=== PATIENT | female | born 1950 | race Caucasian/White ===

== ENCOUNTER 2016-12-06 16:01 | Inpatient (IN) | payer OTHER, MEDICARE ==
[~2016-12-06] VITALS: Ht 170.2 cm; Wt 129.3 kg
--- NOTE | 2016-12-06 16:15 | ED GI/GU/ABDOMINAL COMPLAINT ---
History of Present Illness General Chief Complaint: General Adult Stated Complaint: NV Source: patient, old records, EMS Exam Limitations: no limitations Vital Signs & Intake/Output Vital Signs & Intake/Output Vital Signs Date Time Temp Pulse Resp B/P B/P Pulse O2 O2 Flow FiO2 Mean Ox Delivery Rate 12/06 1613 98.0 114 18 180/78 97 Room Air Allergies Coded Allergies: No Known Allergies (12/06/16) Triage Note: PT BIBA FROM HOME C/C N/V MULTIPLE TIMES SINCE THIS MORNING. STARTED AFTER BREAKFAST, ATE RAISIN TOAST. DENIES DIARRHEA, HAD 2 NORMAL BM THIS AM. DENIES URINARY S/S. Triage Nurses Notes Reviewed? yes ? N Is pt currently ? No HPI: Patient states that approximately one half hours after eating breakfast this morning she developed a sharp stabbing shooting pain in her upper quadrant. The pain shoots from the left upper quadrant to the right upper quadrant. Shortly after the pain the patient then vomits the pain goes away. This is his car multiple times throughout the day. The pain lasts just a few minutes until she throws up and then it goes away. When the pain is present the pain is 8 out of 10, and when it goes away goes away completely. There is no diarrhea. There are no fevers or chills. Patient denies any chest pain or chest tightness. There is no orthopnea. Patient also states that she has been having hiccups on and off for the past few weeks. Patient has seen a primary care physician about these hiccups. Past History Travel History Traveled to [place] past 21 day No Medical History Any Pertinent Medical History? see below for history Cardiovascular: hypertension Blood Disorders: anemia Surgical History Surgical History: none Psychosocial History What is your primary language Belarusian Tobacco Use: Quit >30 days ago Family History Hx Contributory? No Review of Systems Review of Systems Constitutional: Reports: no symptoms. EENTM: Reports: no symptoms. Respiratory: Reports: no symptoms. Cardiovascular: Reports: no symptoms. GI: Reports: see HPI, abdominal pain, nausea, vomiting. Genitourinary: Reports: no symptoms. Musculoskeletal: Reports: no symptoms. Skin: Reports: no symptoms. Neurological/Psychological: Reports: no symptoms. Hematologic/Endocrine: Reports: no symptoms. Immunologic/Allergic: Reports: no symptoms. All Other Systems: Reviewed and Negative Physical Exam Physical Exam General Appearance: well developed/nourished, alert, awake, mild distress Head: atraumatic, normal appearance Eyes: Bilateral: PERRL, EOMI. Ears, Nose, Throat, Mouth: hearing grossly normal, dental injury, dry mucosa Neck: normal inspection, supple Respiratory: normal breath sounds, chest non-tender, no respiratory distress, lungs clear Cardiovascular: regular rate/rhythm, normal peripheral pulses Gastrointestinal: normal bowel sounds, soft, non-tender, no organomegaly Back: normal inspection, normal range of motion Extremities: normal range of motion Neurologic/Psych: no motor/sensory deficits, awake, alert, oriented x 3, normal mood/affect Skin: intact, normal color, warm/dry Core Measures ACS in differential dx? 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 12/06 1614 Active URINALYSIS 12/06 161 Active TROPONIN LEVEL 12/06 161 Complete LIPASE 12/06 1614 Complete COMPREHENSIVE METABOLIC PANEL 12/06 161 Complete CBC WITHOUT DIFFERENTIAL 12/06 161 Complete AMYLASE 12/06 161 Complete EKG 12/06 1614 Active Current Medications Sig/Alexis Start time Last Medication Dose Stop Time Status Admin Sodium Chloride 1,000 ML BOLUS ONE 12/06 1830 AC (Normal Saline 0.9%) 12/06 1929 Laboratory Tests 12/06/16 1650: Anion Gap 15, Estimated GFR > 60, BUN/Creatinine Ratio 15.0, Glucose 127 H, Calcium 9.4, Total Bilirubin 0.6, AST 13 L, ALT 16, Alkaline Phosphatase 139 H , Troponin I < 0.01, Total Protein 6.9, Albumin 4.0, Globulin 2.9, Albumin/ Globulin Ratio 1.4, Amylase < 30 L, Lipase 44, CBC w Diff MAN DIFF ORDERED, RBC 4.85, MCV 64.0 L, MCH 18.8 L, RDW 20.3 H, Segmented Neutrophils 94 H, Band Neutrophils 1, Lymphocytes 3 L, Monocytes 2, Platelet Estimate , Hypochromic- Microcytic 1+, Anisocytosis 1+, Microcytic Cells 1+, PUBS MCHC 29.4 L Diagnostic Imaging: Viewed by Me: CT Scan. Discussed w/RAD: CT Scan. Radiology Impression: PATIENT: NADYA CREWS PRESENT AGE: 66 PATIENT ACCOUNT NO: [id number] : 51 LOCATION: [facility] ORDERING PHYSICIAN: ANJU HALE MD SERVICE DATE: 12/06/16 EXAM TYPE: CAT - CT ABD & PELVIS W IV CONTRAST EXAMINATION: CT ABDOMEN AND PELVIS WITH CONTRAST CLINICAL INFORMATION: Right upper quadrant abdominal pain COMPARISON: None TECHNIQUE: Multidetector volumetric imaging was performed of the abdomen and pelvis before and after the IV administration of 95 mL of Optiray 320 intravenous contrast. Sagittal and coronal reformatted images were obtained on the technologist's workstation. DLP: 1660.23 mGy-cm FINDINGS: LUNG BASES: The visualized lung bases are unremarkable. LIVER, GALLBLADDER, AND BILIARY TREE: The liver is normal in size, shape, and attenuation. No focal hepatic lesion or biliary ductal dilatation is present. The gallbladder is is a slightly over distended, up to 10.3 cm in longest diameter. However there is no evidence of radiopaque gallstones, gallbladder wall thickening, or obvious pericholecystic inflammatory changes. PANCREAS: Unremarkable. SPLEEN: Unremarkable. ADRENAL GLANDS: Unremarkable. KIDNEYS AND URETERS: The kidneys are normal in size, shape , and attenuation. No hydronephrosis, hydroureter, or calculi seen. No perinephric stranding. BLADDER: The urinary bladder is partially full and unremarkable. GASTROINTESTINAL TRACT: The stomach, duodenum and proximal small bowel loops are unremarkable. The more distal small bowel loops are dilated, with maximal transverse diameter of 4.5 cm. There is no small bowel wall thickening or pneumatosis. The colon is decompressed. There seems to be a 3 x 4 cm soft tissue density in the region of the ileocecal valve, better seen on coronal image 61 and axial image 51 from series 2. This is concerning for neoplastic process. ABDOMINAL WALL: No significant hernia is appreciated. LYMPH NODES: There is a 1.7 cm lymph node in the right side of the mesentery, axial image 45 from series 2 and coronal image 50. Multiple smaller mesenteric lymph nodes are seen in the right lower quadrant of the abdomen. There is no free fluid or free air in the abdomen or pelvis. VASCULAR: Unremarkable. PELVIC VISCERA: Enlarged fibromatous uterus with calcifications of a uterine fibroid noted. No adnexal masses seen. OSSEOUS STRUCTURES: Multilevel degenerative disc disease of the lumbar spine with vacuum disc phenomenon and mild narrowing of the intervertebral disc spaces noted. No aggressive bony lesions. IMPRESSION: Findings of small bowel obstruction with suggestion of the transition zone in the region of the ileocecal valve, where there is a 3 x 4 cm soft tissue density. There is an enlarged right mesenteric lymph node. The gallbladder is a slightly over distended, up to 10.3 cm in longest diameter, however there are no CT evidence of acute cholecystitis. DICTATED BY: HELDER MONREAL MD DATE/TIME DICTATED:12/06/161746 INSULATION POWER UNIT TENDER:DAYSI DATE/TIME TRANSCRIBED:1746 CONFIDENTIAL, DO NOT COPY WITHOUT APPROPRIATE AUTHORIZATION. < Electronically signed in Other Vendor System> SIGNED BY: HELDER MONREAL MD 12/06/16 1801 Initial ED EKG: S TACH AT 100, NO ISCHEMIC CHANGES. Rhythm Strip: normal sinus rhythm Comments: Patient updated on laboratory results and CAT scan results. Consultation to surgery has been placed. Departure Departure Disposition: STILL A PATIENT Condition: Guarded Clinical Impression Primary Impression: Small bowel obstruction Secondary Impressions: Intestinal mass Referrals: ROQUE KNOTT,PRIYA Leon (PCP/Family) Departure Forms: Customer Survey General Discharge Information Admission Note Spoke With: OSMANI KNOTT,CHERI N. Documentation of Exam: Documentation of any treatments & extenuating circumstances including Concerns Regarding Discharge (functional status, medication knowledge or non-compliance, living conditions, etc.) that warrant an admission rather than observation: [NPO , IV FLUIDS, SURGICAL EVAL AND TREATMENT.]
--- NOTE | 2016-12-06 16:36 | NUR ---
1 L NS INFUSING AT BOLUS RATE. TETANUS INJ GIVEN TO LEFT DELT ORDERD
[2016-12-06 16:46] LABS: MEAN CORPUSCULAR HGB 18.8 PG (27.0-31.0); MEAN CORPUSCULAR HGB CONC 29.4 G/DL (33.0-37.0); RBC DISTRIBUTION WIDTH 20.3 % (11.5-14.5); RED BLOOD CELL CT 4.85 /CUMM (4.20-5.40); WHITE BLOOD CELL COUNT 13.6 /CUMM (4.8-10.8)
--- NOTE | 2016-12-06 17:18 | NUR ---
DR. HALE AT BESIDE TO DISCUSS RESULTS AND POC
--- NOTE | 2016-12-06 17:27 | NUR ---
PT TO CT SCAN
--- NOTE | 2016-12-06 17:40 | NUR ---
PT RETURNED FROM CT SCAN W/O INCIDENT
--- NOTE | 2016-12-06 18:01 | CT SCAN REPORT ---
EXAMINATION: CT ABDOMEN AND PELVIS WITH CONTRAST CLINICAL INFORMATION: Right upper quadrant abdominal pain COMPARISON: None TECHNIQUE: Multidetector volumetric imaging was performed of the abdomen and pelvis before and after the IV administration of 95 mL of Optiray 320 intravenous contrast. Sagittal and coronal reformatted images were obtained on the technologist's workstation. DLP: 1660.23 mGy-cm FINDINGS: LUNG BASES: The visualized lung bases are unremarkable. LIVER, GALLBLADDER, AND BILIARY TREE: The liver is normal in size, shape, and attenuation. No focal hepatic lesion or biliary ductal dilatation is present. The gallbladder is is a slightly over distended, up to 10.3 cm in longest diameter. However there is no evidence of radiopaque gallstones, gallbladder wall thickening, or obvious pericholecystic inflammatory changes. PANCREAS: Unremarkable. SPLEEN: Unremarkable. ADRENAL GLANDS: Unremarkable. KIDNEYS AND URETERS: The kidneys are normal in size, shape, and attenuation. No hydronephrosis, hydroureter, or calculi seen. No perinephric stranding. BLADDER: The urinary bladder is partially full and unremarkable. GASTROINTESTINAL TRACT: The stomach, duodenum and proximal small bowel loops are unremarkable. The more distal small bowel loops are dilated, with maximal transverse diameter of 4.5 cm. There is no small bowel wall thickening or pneumatosis. The colon is decompressed. There seems to be a 3 x 4 cm soft tissue density in the region of the ileocecal valve, better seen on coronal image 61 and axial image 51 from series 2. This is concerning for neoplastic process. ABDOMINAL WALL: No significant hernia is appreciated. LYMPH NODES: There is a 1.7 cm lymph node in the right side of the mesentery, axial image 45 from series 2 and coronal image 50. Multiple smaller mesenteric lymph nodes are seen in the right lower quadrant of the abdomen. There is no free fluid or free air in the abdomen or pelvis. VASCULAR: Unremarkable. PELVIC VISCERA: Enlarged fibromatous uterus with calcifications of a uterine fibroid noted. No adnexal masses seen. OSSEOUS STRUCTURES: Multilevel degenerative disc disease of the lumbar spine with vacuum disc phenomenon and mild narrowing of the intervertebral disc spaces noted. No aggressive bony lesions. IMPRESSION: Findings of small bowel obstruction with suggestion of the transition zone in the region of the ileocecal valve, where there is a 3 x 4 cm soft tissue density. There is an enlarged right mesenteric lymph node. The gallbladder is a slightly over distended, up to 10.3 cm in longest diameter, however there are no CT evidence of acute cholecystitis.
--- NOTE | 2016-12-06 19:08 | NUR ---
SURGERY IN TO SEE PATIENT. PT TO BE NPO AT THIS TIME. PENDING ADMISSION
[2016-12-06] MEDS ORDERED: LISINOPRIL10 M1 PO (19:32)
--- NOTE | 2016-12-06 19:35 | NUR ---
PATIENT REPORTED TO THIS RN, "THE SURGERY TEAM SAID IF I DON'T LIKE THE TUBE I DON'T NEED IT". ATTEMPTED TO PLACE NG TUBE TO RIGHT NARE, PATIENT BEGAN TO GAG AND REQUESTED TO HAVE TUBE REMOVED. NG TUBE DISCONTINUED AT THIS TIME. PT VOMITING BILIOUS EMESIS.
--- NOTE | 2016-12-06 19:50 | PN- General Surgery ---
Subjective Subjective: Pt seen and evaluated in the ED Dr Camp to complete the H and P In brief: Abdominal pain and nausea all day. BM x 2 today - normal. Pt has had a one year history of abdominal "gurgling" - no pain, no nausea, just a strange bloating feeling. Was seen by her PCP Dr Stevens about a year ago and dx with anemia. Placed on iron tabs which upset her stomach so she stopped taking them about 3 months later. No known GI workup in the past. Today abdominal pain and nausea brought her to present to the ED. CT reveals a mass at the ileocecal junction Surgery was contacted Objective Vital Signs and I&Os Vital Signs Date Time Temp Pulse Resp B/P B/P Pulse O2 O2 Flow FiO2 Mean Ox Delivery Rate 12/07 1927 98.5 94 20 170/70 97 Room Air 12/06 161 98.0 114 18 180/78 97 Room Air Physical Exam: VSS, afebrile General: alert and oriented times three chest: clear anteriorly bilaterally, RRR Abd: soft, tender to moderate palpation in lower abdomen, non tender upper, good bs Ext: warm, no edema Current Medications: Current Medications Sig/Alexis Start time Last Medication Dose Route Stop Time Status Admin Acetaminophen 650 MG Q6PRN PRN 12/06 1944 UNVr PO Dextrose/Sodium 1,000 ML .Q8H 12/06 1944 UNVr Chloride IV Heparin Sodium 5,000 UNIT Q8 12/06 2200 UNVr (Porcine) SC Lidocaine 0 .STK-MED ONE 12/06 192 DC PO Lisinopril 10 MG DAILY 12/07 1000 UNVr PO Metoclopramide HCl 10 MG ONCE ONE 12/06 1700 DC 12/06 IV 12/06 1701 1654 Metoclopramide HCl 0 .STK-MED ONE 12/06 1657 DC .ROUTE Morphine Sulfate 1 MG Q3P PRN 12/06 1944 UNVr IV Morphine Sulfate 2 MG Q3P PRN 12/06 1944 UNVr IV Ondansetron HCl 4 MG Q8P PRN 12/06 1944 UNVr IV Sodium Chloride 1,000 ML BOLUS ONE 12/06 1830 DC 12/06 IV 12/06 1929 1848 Sodium Chloride 1,000 ML BOLUS ONE 12/06 1615 DC 12/06 IV 12/06 1714 1636 Tetanus/Diphtheria 0 .STK-MED ONE 12/06 1632 DC Toxoids Adsorbed IM Tetanus/Diphtheria 0.5 ML ONCE ONE 12/06 161 DC 12/06 Toxoids Adsorbed IM 12/06 161 1635 Zolpidem Tartrate 5 MG AT BEDTIME NEED.. 12/06 1944 UNVr PO Results Last 48 Hours of Labs: Laboratory Tests 12/06 1649 Chemistry Sodium (137 - 145 mmol/L) 139 Potassium (3.5 - 5.1 mmol/L) 4.4 Chloride (98 - 107 mmol/L) 103 Carbon Dioxide (22 - 30 mmol/L) 21 L Anion Gap (5 - 16) 15 BUN (7 - 17 mg/dL) 9 Creatinine (0.5 - 1.0 mg/dL) 0.6 Estimated GFR (>60 ml/min) > 60 BUN/Creatinine Ratio (7 - 25 %) 15.0 Glucose (65 - 99 mg/dL) 127 H Calcium (8.4 - 10.2 mg/dL) 9.4 Total Bilirubin (0.2 - 1.3 mg/dL) 0.6 AST (14 - 36 U/L) 13 L ALT (9 - 52 U/L) 16 Alkaline Phosphatase (<127 U/L) 139 H Troponin I (< 0.11 ng/ml) < 0.01 Total Protein (6.3 - 8.2 g/dL) 6.9 Albumin (3.5 - 5.0 g/dL) 4.0 Globulin (1.9 - 4.2 gm/dL) 2.9 Albumin/Globulin Ratio (1.1 - 2.2 %) 1.4 Amylase (30 - 110 U/L) < 30 L Lipase (23 - 300 U/L) 44 Hematology CBC w Diff MAN DIFF ORDERED WBC (4.8 - 10.8 /CUMM) 13.6 H RBC (4.20 - 5.40 /CUMM) 4.85 Hgb (12.0 - 16.0 G/DL) 9.1 L Hct (37 - 47 %) 31.0 L MCV (81.0 - 99.0 FL) 64.0 L MCH (27.0 - 31.0 PG) 18.8 L RDW (11.5 - 14.5 %) 20.3 H Plt Count (130 - 400 /CUMM) Segmented Neutrophils (42.2 - 75.2 %) 94 H Band Neutrophils (0.0 - 5.0 %) 1 Lymphocytes (20.5 - 51.1 %) 3 L Monocytes (1.7 - 9.3 %) 2 Platelet Estimate (ADEQUATE) Hypochromic-Microcytic 1+ Anisocytosis 1+ Microcytic Cells 1+ PUBS MCHC (33.0 - 37.0 G/DL) 29.4 L Assessment/Plan Assessment/Plan 66 yo female with ileocecal mass/anemia d/w Dr Camp plan to admit to surgery npo/ngt/ivf GI to see in the am for further workup fu labs in am pain mgmt Core Measures/Miscellaneous Venous Thromboembolism VTE Risk Factors: Age > 40 VTE Contraindications: No Contraindications VTE Diagnosis: No Beta Yumiko Is Beta Yumiko a Home Med? No Antibiotics Is Patient on Antibiotics? No
--- NOTE | 2016-12-06 19:52 | Admission Core Measures ---
Admission Lab Results I reviewed the following labs: Laboratory Tests 12/06 1650 Chemistry Sodium (137 - 145 mmol/L) 139 Potassium (3.5 - 5.1 mmol/L) 4.4 Chloride (98 - 107 mmol/L) 103 Carbon Dioxide (22 - 30 mmol/L) 21 L Anion Gap (5 - 16) 15 BUN (7 - 17 mg/dL) 9 Creatinine (0.5 - 1.0 mg/dL) 0.6 Estimated GFR (>60 ml/min) > 60 BUN/Creatinine Ratio (7 - 25 %) 15.0 Glucose (65 - 99 mg/dL) 127 H Calcium (8.4 - 10.2 mg/dL) 9.4 Total Bilirubin (0.2 - 1.3 mg/dL) 0.6 AST (14 - 36 U/L) 13 L ALT (9 - 52 U/L) 16 Alkaline Phosphatase (<127 U/L) 139 H Troponin I (< 0.11 ng/ml) < 0.01 Total Protein (6.3 - 8.2 g/dL) 6.9 Albumin (3.5 - 5.0 g/dL) 4.0 Globulin (1.9 - 4.2 gm/dL) 2.9 Albumin/Globulin Ratio (1.1 - 2.2 %) 1.4 Amylase (30 - 110 U/L) < 30 L Lipase (23 - 300 U/L) 44 Hematology CBC w Diff MAN DIFF ORDERED WBC (4.8 - 10.8 /CUMM) 13.6 H RBC (4.20 - 5.40 /CUMM) 4.85 Hgb (12.0 - 16.0 G/DL) 9.1 L Hct (37 - 47 %) 31.0 L MCV (81.0 - 99.0 FL) 64.0 L MCH (27.0 - 31.0 PG) 18.8 L RDW (11.5 - 14.5 %) 20.3 H Plt Count (130 - 400 /CUMM) Segmented Neutrophils (42.2 - 75.2 %) 94 H Band Neutrophils (0.0 - 5.0 %) 1 Lymphocytes (20.5 - 51.1 %) 3 L Monocytes (1.7 - 9.3 %) 2 Platelet Estimate (ADEQUATE) Hypochromic-Microcytic 1+ Anisocytosis 1+ Microcytic Cells 1+ PUBS MCHC (33.0 - 37.0 G/DL) 29.4 L Admission Meds I reviewed the following Meds: Current Medications Sig/Alexis Start time Last Medication Dose Stop Time Status Admin Acetaminophen 650 MG Q6PRN PRN 12/06 1944 UNVr (Tylenol) Dextrose/Sodium 1,000 ML .Q8H 12/06 1944 UNVr Chloride (D5W-1/2 Normal Saline 1000ML) Heparin Sodium 5,000 UNIT Q8 12/06 2199 UNVr (Porcine) Lisinopril 10 MG DAILY 12/07 1000 UNVr (Prinivil) Morphine Sulfate 1 MG Q3P PRN 12/06 1944 UNVr (Morphine) Morphine Sulfate 2 MG Q3P PRN 12/06 1944 UNVr (Morphine) Ondansetron HCl 4 MG Q8P PRN 12/06 1944 UNVr (Zofran) Zolpidem Tartrate 5 MG AT BEDTIME NEED.. 12/06 1944 UNVr (Ambien) Acute Coronary Syndrome Inclusion Criteria ACS Diagnosis No Inpatient Core Measures LDL Reminder: If No, please order W/I first 24hr of stay Congestive Heart Failure Inclusion Criteria CHF Diagnosis No Cerebrovascular accident Inclusion Criteria CVA/TIA Diagnosis No Inpatient Core Measures Bedside Swallow Eval Reminder: If BSE failed, place ST order Antithrombotic Reminder: Order Antithrombotic Medication by end of day 2 Antithrombotic Reminder: Document Reason Antithrombotic Not ordered by end of day 2 AFIB/Flutter Reminder: If Present, add to problem list AFIB/Flutter Reminder: Order Anticoag Medication for pts with AFIB/Flutter Atherosclerosis Reminder: If Present, add to problem list LDL Reminder: If No, please order W/I first 24hr of stay PT Order Reminder: If No, please order Venous thromboembolism Inpatient Core Measures VTE Risk Factors: Age > 40 [facility] prophylaxis d/t No contraindications No VTE Pharm Prophylaxis d/t No contraindications Inclusion Criteria - Per Current guidelines, there needs to be overlap - treatment for the first 5 days of Warfarin therapy. - Parenteral Anticoagulation (IV or SC) needs to be - given along with Warfarin therapy. VTE Diagnosis No VTE Type NONE VTE Confirmed by (Test) NONE Problem List As ranked by this Provider includes Assessment & Plan 1. Intestinal mass HOME MEDS Home Med List Lisinopril 10 MG TABLET 1 TAB PO DAILY HTN (Reported)
--- NOTE | 2016-12-06 20:05 | NUR ---
PT ADMITTED TO ROOM 237-01
--- NOTE | 2016-12-06 20:37 | NUR ---
REPORT GIVEN TO HARLAN DEWEY
[2016-12-06 21:00] VITALS: BP 154/84
[2016-12-07 06:24] VITALS: BP 150/72
--- NOTE | 2016-12-07 07:22 | PN- General Surgery ---
Subjective Subjective: The patient was seen this morning. She reports some minimal abdominal discomfort this morning which is adequately managed with Tylenol. She reports overall her pain has improved since admission and she denies any current nausea. She has no complaints at the current time and has not passed flatus or had a bowel movement since yesterday. Objective Vital Signs and I&Os Vital Signs Date Time Temp Pulse Resp B/P B/P Pulse O2 O2 Flow FiO2 Mean Ox Delivery Rate 12/08 623 98.4 88 18 150/72 99 Room Air 12/06 2227 86 154/84 / 2100 98.5 86 20 154/84 100 Room Air 12/06 2045 Room Air 12/06 1928 98.5 94 20 170/70 97 Room Air 12/06 1613 98.0 114 18 180/78 97 Room Air Intake & Output 12/07 0800 07/ 0000 12/06 1600 / 0800 12/06 0000 12/05 1600 Intake Total 1080 1250 Output Total 300 Balance 780 1250 Intake, IV 1000 1150 Intake, Oral 80 100 Output, Urine 300 Patient 285 lb Weight Weight Reported by Patient Measurement Method Physical Exam: Gen.: Alert and in no obvious distress Skin: Warm and dry Abdomen: Soft, obese, nontender, nondistended, bowel sounds positive. Extremities: Bilateral lower extremities are warm without calf tenderness. Assessment/Plan Assessment/Plan Assessment: 66-year-old female admitted to be admitted for abdominal pain with a CAT scan finding of a probable ileal cecal mass. The patient's abdominal pain and nausea has improved overnight. Plan: We will continue to hold off on NG tube as the patient is refusing is currently not nauseous Keep nothing by mouth with IV hydration PRN pain medication Out of bed and ambulate GI and DVT prophylaxis Incentive spirometry Follow-up gastroenterology consultation Follow-up morning laboratory studies Core Measures/Miscellaneous Venous Thromboembolism VTE Risk Factors: Age > 40 VTE Contraindications: No Contraindications VTE Diagnosis: No VTE Type: NONE VTE Confirmed by (Test): NONE Beta Yumiko Is Beta Yumiko a Home Med? No Antibiotics Is Patient on Antibiotics? No
--- NOTE | 2016-12-07 08:17 | Cons- Gastroenterology ---
General Information and HPI Consulting Request Date of Consult: 12/07/16 Requested By: OSMANI KNOTT,CHERI Phillips Reason for Consult: I was just notified within the past hour of a request by the surgical service for GI consultation to evaluate mass at ileocecal valve noted on CT, in the setting of SBO. Source of Information: patient, family (pt's son, Kaveh) Exam Limitations: poor insight & anxiety History of Present Illness: 66-year-old female, obese, HTN, non-DM, without previous abdominal surgery, who presented to the [place] [facility] 12/06/2016 at 4:01 p.m., BIBA from home, complaining of multiple episodes of nausea and vomiting that morning, starting after breakfast, after she ate raisin toast. She also had upper mid abdominal pain then, radiationg across the upper abdomen. She denied any diarrhea. She had 2 normal bowel movements that morning. The vomitus showed partially digested food. There was no blood or bile from above. She denied any GERD, odynophagia, dysphagia, early satiety, fevers, chills, jaundice, weight loss, change in appetite, constipation, obstipation, change in stool caliber, melena, or rectal bleeding. There is no family history of colon cancer, GI disease, or inherited liver disease. She was not on any aspirin or NSAIDs. She denied any symptoms of UTI or URI. She noted some mild hiccups on the day of admission. She denied any gross hematuria, hemoptysis, or vaginal spotting. She does not see UNDERGROUND ELECTRICIAN. CT on admission also showed a uterine fibroid. Upon presentation, BP 180/78, PT 114, R 18, T 98, O2 sat RA 97%. She was given IV NS, a tetanus shot (as she had scraped her leg on a screw 1 week prior), Reglan, viscous lidocaine, Tylenol, Zofran, subcutaneous heparin, Ambien & MS in the ER. 12/06/16: CT AP with IV contrast per ER- SBO with mass at ICV. NG tube was advised by surgery, but the patient refused this. She is NPO, getting IVF. She was admitted to the surgical service on 12/06/2016. *The patient has chronic iron deficient microcytic anemia, per PMD, Dr. Navarro , dating back to 07/28/2015: WBC 5.7, H/H 6.6/23.6, MCV 54.8, RDW 23, PLT 321. 07/31/2015: Fe 14, TIBC 453, Fe sat 3.1%, ferritin 4.9, folate 17.3, RBC folate 1175 (no B12 sent then). *She has never had a baseline colonoscopy or EGD. She refused a colonoscopy then, and prefers not to have one. She and her son, Kaveh, are aware of a mass found at the ICV on CT in the ER (see below). She has poor insight into her condition. She was temporarily put on iron in 07/2015 by her PMD, which she has since stopped. She has never been transfused. *She was made aware that most likely the mass at her ICV is most likely the culprit for her iron deficiency found in 07/2015. She claimed she had OB-negative stool at the time of her Fe deficiency diagnosis & refused a digital rectal exam at the time of GI consultation. 04/04/2016: stool Ag H. pylori- negative, per PMD. Admission labs 12/06/2016: WBC 13.6 (94S/1B/3L/2M), H/H 9.1/31, MCV 64, RDW 20.3 , PLT clumped, glucose 127, BUN/Cr 9/0.6, GFR > 60, Na 139, K 4.4, HCO3 21, AG 15, amylase < 30, lipase 44, Ca 9.4, albumin 4.0, globulin 2.9, TBil 0.6, alk phos 139, AST 13, ALT 16, troponin < 0.01; U/A- clear yellow, 1.010, 7.5, 1-3 WBC, 15+ ketone, tr prot, micro- otherwise neg, neg nitrite, neg esterase. 12/07/2016: WBC 8.8 (76S/8L/16M), H/H 8.3/27.8 (post IVF), MCV 63.5, RDW 20.5, PLT 311, normal electrolytes with HCO3 26, AG 7, BUN/Cr 8/0.6, GFR > 60. 12/07/2016: *CEA- pending. 12/06/2016: EKG- ST @ 100, normal axis, normal intervals, PRWP without ischemic abnormalities. 12/06/2016: CT ABD & PELVIS W IV CONTRAST- Findings of small bowel obstruction with suggestion of the transition zone in the region of the ileocecal valve, where there is a 3 x 4 cm soft tissue density. There is an enlarged 1.7 cm right mesenteric lymph node. No ascites. No free air. The gallbladder is a slightly over distended, up to 10.3 cm in longest diameter, however there are no CT evidence of acute cholecystitis. No gallstones. Normal liver, spleen, & pancreas. Uterine fibroid. L-spine DJD. 12/07/2016: XR ABDOMEN MULTIPLE VIEWS- Persistent distal small bowel obstruction. Obese body habitus. Small bowel remains obstructed and is dilated up to approximately 4 cm diameter, similar in appearance compared to 12/06/2016. No evidence of pneumatosis intestinalis, pneumoperitoneum or other acute finding. There is a paucity of gas in the colon and rectum. Allergies/Medications Allergies: Coded Allergies: No Known Allergies (12/06/16) Home Med List: Lisinopril 10 MG TABLET 1 TAB PO DAILY HTN (Reported) Current Medications: Current Medications Sig/Alexis Start time Last Medication Dose Route Stop Time Status Admin Acetaminophen 650 MG Q6PRN PRN 12/06 1944 AC 12/07 PO 1235 Dextrose/Sodium 1,000 ML .Q8H 12/06 1944 AC 12/07 Chloride IV 0551 Heparin Sodium 5,000 UNIT Q8 12/06 2200 AC 12/07 (Porcine) SC 1319 Lidocaine 0 .STK-MED ONE 12/06 1921 DC PO Lisinopril 10 MG 2000 12/08 1999 AC PO Lisinopril 10 MG DAILY 12/07 1000 DC PO Lisinopril 10 MG ONE TIME ONE 12/06 2144 DC 12/06 PO 12/06 214 2227 Morphine Sulfate 1 MG Q3P PRN 12/06 1944 AC IV Morphine Sulfate 2 MG Q3P PRN 12/06 1944 AC IV Ondansetron HCl 4 MG Q8P PRN 12/06 1944 AC IV Sodium Chloride 1,000 ML BOLUS ONE 12/06 1830 DC 12/06 IV 12/06 1928 1848 Zolpidem Tartrate 5 MG AT BEDTIME NEED.. 12/06 1944 AC PO Past History Travel History Traveled to [place] past 21 day No Medical History Blood Transfusion Hx: No Neurological: NONE EENT: NONE Cardiovascular: hypertension Respiratory: NONE Gastrointestinal: NONE Hepatic: NONE Renal: NONE Musculoskeletal: osteoarthritis Psychiatric: anxiety (mild) Endocrine: obesity Blood Disorders: anemia (fe deficiency) Cancer(s): NONE UNDERGROUND ELECTRICIAN/Reproductive: NONE Surgical History Surgical History: none Family History Relations & Conditions If Any: MOTHER, , Age 88; Cause: CVA (cerebral vascular accident). FATHER, , Age 94; Cause: Old age. Psychosocial History Where Do You Live? Home Who Do You Live With? self Services at Home: None Primary Language: Taiwanese Smoking Status: Former Smoker (1 pk yr cigarettes, D/C age 19) ETOH Use: denies use Illicit Drug Use: denies illicit drug use Living Will? no Power of Cabinet Assembler/HCP? no Other Social History: Single. Lives alone. Remote 1 pk yr cigarette smoker, D/C age 19. No EtOH. 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 1 son, Kaveh- 42, [employer] (in room during GI consult, as per patient). Uses cane. Functional Ability ADLs Independent: dressing, eating, toileting, bathing. Ambulation: cane IADLs Independent: shopping, housework, finances, food prep, telephone, transportation , medication admin. Employment History Employment: Retired Profession/Employer: Retired from [employer] Review of Systems Review of Systems: Full 14 point ROS otherwise noncontributory & as above. Review of Systems Constitutional: Denies: chills, diaphoresis, fever, malaise, weakness, unexplained weight loss. EENTM: Denies: blurred vision, double vision, visual changes, eye pain, eye drainage, eye tearing, icterus, ear discharge, ear pain, ear redness, hearing changes, nasal congestion, epistaxis, nasal pain, throat pain, throat swelling, mouth pain, tooth pain. Cardiovascular: Reports: peripheral edema (chronic). Denies: chest pain, edema, orthopena, palpitations, syncope. Respiratory: Denies: cough, hemoptysis, orthopnea, short of breath, sputum production, stridor, wheezing. GI: Reports: abdominal pain, nausea, vomiting. Denies: bloating, constipation, diarrhea, distention, bowel incontinence, melena, bloody stool, changes in stool , steatorrhea. Genitourinary: Denies: discharge, dysuria, frequency, hematuria, hesitation, nocturia, pain, urgency. Musculoskeletal: Reports: joint pain (DJD). Denies: back pain, gout, joint swelling, muscle pain , muscle stiffness, neck pain. Skin: Denies: cysts, change in skin color, change in hair/nails, dryness, erythema, jaundice, lesions, lymphangitis, lumps, moles, rash. Neurological/Psychological: Reports: anxiety (mild). Denies: ataxia, cognitive dysfunction, confusion, depressed, dementia, emotional problems, headache, numbness, paresthesia, pre- existing deficit, petit mal seizures, tingling, tremors, tonic-clonic seizures, unable to move lower ext, unable to move upper ext, weakness. Hematologic/Endocrine: Denies: bruising, bleeding, polyuria, polydipsia. Immunologic/Allergic: Denies: splenectomy, HIV/AIDS, lymphadenopathy. All Other Systems: Reviewed and Negative Exam & Diagnostic Data Vital Signs and I&O Vital Signs Date Time Temp Pulse Resp B/P B/P Pulse O2 O2 Flow FiO2 Mean Ox Delivery Rate 12/07 0624 98.4 88 18 150/72 99 Room Air 12/06 2227 86 154/84 12/06 2100 98.5 86 20 154/84 100 Room Air 12/06 2045 Room Air 12/06 1928 98.5 94 20 170/70 97 Room Air 12/06 1613 98.0 114 18 180/78 97 Room Air Intake & Output 12/07 1600 12/07 0400 12/06 1600 12/06 0400 12/05 1600 12/05 0400 Intake Total 1080 1250 Output Total 300 Balance 780 1250 Intake, IV 1000 1150 Intake, Oral 80 100 Output, Urine 300 Patient 285 lb Weight Weight Reported by Patient Measurement Method Physical Exam: Well-developed, morbidly obese female, in no apparent distress. Nontoxic appearing. Sclera anicteric. Conjunctiva pink. Oropharynx clear. No oral thrush. No aphthous ulcers. Poor dentition. There is no adenopathy, thyromegaly, or JVD. No peripheral stigmata of inflammatory bowel disease or chronic liver disease on exam. No spiders on the anterior chest wall. Breast & pelvic exams: API. No CVA tenderness. Lungs: clear to A&P, with slight decreased BS at the bases B/L. Heart exam: regular rate rhythm, S1 and S2, without any murmur. Abdominal exam: normal bowel sounds, soft belly, morbidy obese, nontender, without guarding or rebound. No mass or organomegaly, within the limits of the body habitus. Negative Gonzalez sign. No fluid shift. No pulsatile mass. No epigastric bruit. Digital rectal exam: *refused by patient. Extremities: without cyanosis or clubbing. 1+ pitting edema of the LE B/L. No palpable cords. LE with B/L ALPS. Mild DJD. Distal pulses 1+ bilaterally. DTRs 2+ bilaterally. Alert and oriented x 3. No tremor. No asterixis. Motor 5/5 B/L. Results Pertinent Lab Results: Laboratory Tests 12/07 12/07 12/06 0746 0746 1924 Chemistry Sodium Pending Potassium Pending Chloride Pending Carbon Dioxide Pending Anion Gap Pending BUN Pending Creatinine Pending BUN/Creatinine Ratio Pending Carcinoembryonic Ag Pending Hematology CBC w Diff Pending WBC Pending RBC Pending Hgb Pending Hct Pending MCV Pending MCH Pending RDW Pending Plt Count Pending MPV Pending PUBS MCHC Pending Urines Urinalysis LIGHT H Urine Color (YEL,AMB,STR) YEL Urine Clarity (CLEAR) CLEAR Urine pH (5.0 - 8.0) 7.5 Ur Specific [place] (1.001 - 1.035) 1.010 Urine Protein (NEG,<30 MG/DL) TRACE H Urine Ketones (NEG) 15 H Urine Nitrite (NEG) NEG Urine Bilirubin (NEG) NEG Urine Urobilinogen (0.1 - 1.0 EU/dl) 1.0 Ur Leukocyte Esterase (NEG) NEG Ur Microscopic SEDIMENT EXAMINED Urine WBC (0 - 2 /HPF) 1-3 H Ur Epithelial Cells (NONE,FEW) FEW Urine Hemoglobin (NEG) NEG Urine Glucose (N MG/DL) NEG 12/06 1650 Chemistry Sodium (137 - 145 mmol/L) 139 Potassium (3.5 - 5.1 mmol/L) 4.4 Chloride (98 - 107 mmol/L) 103 Carbon Dioxide (22 - 30 mmol/L) 21 L Anion Gap (5 - 16) 15 BUN (7 - 17 mg/dL) 9 Creatinine (0.5 - 1.0 mg/dL) 0.6 Estimated GFR (>60 ml/min) > 60 BUN/Creatinine Ratio (7 - 25 %) 15.0 Glucose (65 - 99 mg/dL) 127 H Calcium (8.4 - 10.2 mg/dL) 9.4 Total Bilirubin (0.2 - 1.3 mg/dL) 0.6 AST (14 - 36 U/L) 13 L ALT (9 - 52 U/L) 16 Alkaline Phosphatase (<127 U/L) 139 H Troponin I (< 0.11 ng/ml) < 0.01 Total Protein (6.3 - 8.2 g/dL) 6.9 Albumin (3.5 - 5.0 g/dL) 4.0 Globulin (1.9 - 4.2 gm/dL) 2.9 Albumin/Globulin Ratio (1.1 - 2.2 %) 1.4 Amylase (30 - 110 U/L) < 30 L Lipase (23 - 300 U/L) 44 Hematology CBC w Diff MAN DIFF ORDERED WBC (4.8 - 10.8 /CUMM) 13.6 H RBC (4.20 - 5.40 /CUMM) 4.85 Hgb (12.0 - 16.0 G/DL) 9.1 L Hct (37 - 47 %) 31.0 L MCV (81.0 - 99.0 FL) 64.0 L MCH (27.0 - 31.0 PG) 18.8 L RDW (11.5 - 14.5 %) 20.3 H Plt Count (130 - 400 /CUMM) Segmented Neutrophils (42.2 - 75.2 %) 94 H Band Neutrophils (0.0 - 5.0 %) 1 Lymphocytes (20.5 - 51.1 %) 3 L Monocytes (1.7 - 9.3 %) 2 Platelet Estimate (ADEQUATE) Hypochromic-Microcytic 1+ Anisocytosis 1+ Microcytic Cells 1+ PUBS MCHC (33.0 - 37.0 G/DL) 29.4 L Imaging/Other Studies: 12/06/2016: EKG- ST @ 100, normal axis, normal intervals, PRWP without ischemic abnormalities. 12/06/2016: CT ABD & PELVIS W IV CONTRAST- Findings of small bowel obstruction with suggestion of the transition zone in the region of the ileocecal valve, where there is a 3 x 4 cm soft tissue density. There is an enlarged 1.7 cm right mesenteric lymph node. No ascites. No free air. The gallbladder is a slightly over distended, up to 10.3 cm in longest diameter, however there are no CT evidence of acute cholecystitis. No gallstones. Normal liver, spleen, & pancreas. Uterine fibroid. L-spine DJD. 12/07/2016: XR ABDOMEN MULTIPLE VIEWS- Persistent distal small bowel obstruction. Obese body habitus. Small bowel remains obstructed and is dilated up to approximately 4 cm diameter, similar in appearance compared to 12/06/2016. No evidence of pneumatosis intestinalis, pneumoperitoneum or other acute finding. There is a paucity of gas in the colon and rectum. Assessment/Plan Assessment/Recommendations: 66-year-old female, obese, HTN, non-DM, without previous abdominal surgery, who presented to the [place] ER 12/06/2016 at 4:01 p.m., BIBA from home, complaining of multiple episodes of nausea and vomiting that morning, starting after breakfast, after she ate raisin toast. She also had upper mid abdominal pain then, radiationg across the upper abdomen. She denied any diarrhea. She had 2 normal bowel movements that morning. The vomitus showed partially digested food. There was no blood or bile from above. She denied any GERD, odynophagia, dysphagia, early satiety, fevers, chills, jaundice, weight loss, change in appetite, constipation, obstipation, change in stool caliber, melena, or rectal bleeding. There is no family history of colon cancer, GI disease, or inherited liver disease. She was not on any aspirin or NSAIDs. She denied any symptoms of UTI or URI. She noted some mild hiccups on the day of admission. She denied any gross hematuria, hemoptysis, or vaginal spotting. She does not see UNDERGROUND ELECTRICIAN. CT on admission also showed a uterine fibroid. Upon presentation, BP 180/78, PT 114, R 18, T 98, O2 sat RA 97%. She was given IV NS, a tetanus shot (as she had scraped her leg on a screw 1 week prior), Reglan, viscous lidocaine, Tylenol, Zofran, subcutaneous heparin, Ambien & MS in the ER. 12/06/16: CT AP with IV contrast per ER- SBO with mass at ICV. NG tube was advised by surgery, but the patient refused this. She is NPO, getting IVF. She was admitted to the surgical service on 12/06/2016. *The patient has chronic iron deficient microcytic anemia, per PMD, Dr. Navarro , dating back to 07/28/2015: WBC 5.7, H/H 6.6/23.6, MCV 54.8, RDW 23, PLT 321. 07/31/2015: Fe 14, TIBC 453, Fe sat 3.1%, ferritin 4.9, folate 17.3, RBC folate 1175 (no B12 sent then). *She has never had a baseline colonoscopy or EGD. She refused a colonoscopy then, and prefers not to have one. She and her son, Kaveh, are aware of a mass found at the ICV on CT in the ER (see below). She has poor insight into her condition. She was temporarily put on iron in 07/2015 by her PMD, which she has since stopped. She has never been transfused. *She was made aware that most likely the mass at her ICV is most likely the culprit for her iron deficiency found in 07/2015. She claimed she had OB-negative stool at the time of her Fe deficiency diagnosis & refused a digital rectal exam at the time of GI consultation. 04/04/2016: stool Ag H. pylori- negative, per PMD. Admission labs 12/06/2016: WBC 13.6 (94S/1B/3L/2M), H/H 9.1, MCV 64, RDW 20.3 , PLT clumped, glucose 127, BUN/Cr 9/0.6, GFR > 60, Na 139, K 4.4, HCO3 21, AG 15, amylase < 30, lipase 44, Ca 9.4, albumin 4.0, globulin 2.9, TBil 0.6, alk phos 139, AST 13, ALT 16, troponin < 0.01; U/A- clear yellow, 1.010, 7.5, 1-3 WBC, 15+ ketone, tr prot, micro- otherwise neg, neg nitrite, neg esterase. 12/07/2016: WBC 8.8 (76S/8L/16M), H/H 8.3/27.8 (post IVF), MCV 63.5, RDW 20.5, PLT 311, normal electrolytes with HCO3 26, AG 7, BUN/Cr 8/0.6, GFR > 60. 12/07/2016: *CEA- pending. 12/06/2016: EKG- ST @ 100, normal axis, normal intervals, PRWP without ischemic abnormalities. 12/06/2016: CT ABD & PELVIS W IV CONTRAST- Findings of small bowel obstruction with suggestion of the transition zone in the region of the ileocecal valve, where there is a 3 x 4 cm soft tissue density. There is an enlarged 1.7 cm right mesenteric lymph node. No ascites. No free air. The gallbladder is a slightly over distended, up to 10.3 cm in longest diameter, however there are no CT evidence of acute cholecystitis. No gallstones. Normal liver, spleen, & pancreas. Uterine fibroid. L-spine DJD. 12/07/2016: XR ABDOMEN MULTIPLE VIEWS- Persistent distal small bowel obstruction. Obese body habitus. Small bowel remains obstructed and is dilated up to approximately 4 cm diameter, similar in appearance compared to 12/06/2016. No evidence of pneumatosis intestinalis, pneumoperitoneum or other acute finding. There is a paucity of gas in the colon and rectum. 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 A benign process is less likely, clinically. Appendiceal Ca and/or carcinoid are even less likely. *I previously spoke with the surgical PA. Dr. Camp returned my call later today regarding his ultimate plan, as to whether he will do definitive surgery/ right hemicolectomy for probable underlying neoplasm at ICV vs. preop unprepped colonoscopy to get tissue diagnosis, although the patient is at increased risk for perforation from the latter, based on SBO. Additionally, it would be difficult to rule out any synchronous colon lesions, as the colon would be unprepped. Dr. Villanueva is now leaning towards definitve surgery, with which I agree. I told the patient and her son, Kaveh, that the mass at the ICV is most likely malignant, keeping in mind the adjacent lymph node on CT & the chronic Fe deficiency. *SUGGEST: NPO. *NGT as patient allows. IVF (currently getting IV: D5 1/2 NS @ 125 cc/hr). Analgesics as needed. DVT prophylaxis. *Await 12/07/16: CEA. Needs CXR. Zofran as needed. Serial abdominal exams. Definitive surgical therapy for SBO per Dr. Camp, which should include tentative formal colon Ca surgery (i.e.- adequate resection of right colon and it's lymphatics), for the ICV mass, as the unprepped bowel allows. *I told the patient and her son, Kaveh, to contact my office postoperatively once she recuperates, for a baseline colonoscopy of her residual colon. *They were given my office number & hopefully, she will comply. Further inpatient care, as per surgery. The case was discussed in depth with Dr. Camp today. Please call if further inpatient GI input is needed. Problem List: 1. Small bowel obstruction 2. Intestinal mass 3. Iron deficiency anemia 4. Nausea & vomiting 5. Abdominal pain Copies To: OSMANI KNOTT,CHERI Phillips; ROQUE KNOTT,PRIYA Leon Consult Acknowledgment - Thank you for your consult request.
[2016-12-07 09:14] LABS: HEMATOCRIT 27.8 % (37-47); MEAN CORPUSCULAR VOLUME 63.5 FL (81.0-99.0); PLATELET COUNT 311 /CUMM (130-400); RBC DISTRIBUTION WIDTH 20.5 % (11.5-14.5); RED BLOOD CELL CT 4.38 /CUMM (4.20-5.40); WHITE BLOOD CELL COUNT 8.8 /CUMM (4.8-10.8)
[2016-12-07 14:41] VITALS: BP 140/60
--- NOTE | 2016-12-07 14:47 | RADIOLOGY REPORT ---
EXAMINATION: XR ABDOMEN MULTIPLE VIEWS CLINICAL INDICATION: History of right-sided abdominal pain and findings of small bowel obstruction on CT imaging. COMPARISON: CT images of abdomen and pelvis, 12/06/2016 TECHNIQUE: Abdomen radiograph, 2 views FINDINGS: Obese body habitus. Small bowel remains obstructed and is dilated up to approximately 4 cm diameter, similar in appearance compared to 12/06/2016. No evidence of pneumatosis intestinalis, pneumoperitoneum or other acute finding. There is a paucity of gas in the colon and rectum. IMPRESSION: Persistent distal small bowel obstruction.
--- NOTE | 2016-12-07 18:46 | History & Physical Pre-Op ---
General Information and HPI Source of Information: patient, family (pt's son, Kaveh) Exam Limitations: poor insight & anxiety History of Present Illness: CC: Vomiting HPI: 66-year-old overweight nonsmoker nondiabetic, with anemia, who in retrospect has been feeling increasingly bloated and gassy for several months but she came to the ER yesterday because of vomiting which started after breakfast she also had 2 normal bowel movements but since then no flatus no other BMs the vomiting has slowed down she briefly had an NG tube in the ER but pulled it out no hiccups no belching, abdominal pain was not focal it was general in the middle to upper, it 's better now no IV analgesics, she feels a little bloated denies any bleeding per rectum denies any gynecologic problems no prior abdominal surgery no family history of colon cancer she has not had a colonoscopy, before this there were no changes bowel habits, weight or appetite. I've reviewed the [facility]. No history of GERD, PUD, bleeding problems, heart disease or issues with anesthesia. 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 FATHER, , Age 94; Cause: Old age. Psychosocial History Where Do You Live? Home Who Do You Live With? self Services at Home None Primary Language: Liberian Smoking Status: Former Smoker (1 pk yr cigarettes, D/C age 19) ETOH Use: denies use Illicit Drug Use: denies illicit drug use Living Will? no Power of Dentofacial Orthopedics Dentist/HCP? no Other Social History: Single. Lives alone. Remote 1 pk yr cigarette smoker, D/C age 19. No EtOH. 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 1 son, Arik 41, [employer] (in room during GI consult, as per patient). Uses cane. Functional Ability ADLs Independent: dressing, eating, toileting, bathing. Ambulation: cane IADLs Independent: shopping, housework, finances, food prep, telephone, transportation , medication admin. Employment History Employment: Retired Profession/Employer: Retired from [employer] Review of Systems Review of Systems: Constitutional: No fever, sweats or weight loss ENMT: No sore throat Cardiovascular: No chest pain, palpitations or leg swelling Respiratory: No shortness of breath, cough, or sputum or dyspnea on exertion GI: No GERD or bleeding per rectum : No dysuria or hematuria Musculoskeletal: No new muscle weakness, bone or joint pain Skin / Breast: No jaundice, rashes or itching Psychiatric: No history of drug or alcohol abuse no depression or anxiety Hematologic / lymphatic system: No problems with excessive bleeding, bruising, or blood clots Exam & Diagnostic Data Last 24 Hrs of Vital Signs/I&O I reviewed Vital Signs Date Time Temp Pulse Resp B/P B/P Pulse O2 O2 Flow FiO2 Mean Ox Delivery Rate 12/07 1441 97.3 79 18 140/60 97 Room Air 12/07 0624 98.4 88 18 150/72 99 Room Air 12/06 2227 86 154/84 07/04 2100 98.5 86 20 154/84 100 Room Air 12/06 2045 Room Air 12/06 1928 98.5 94 20 170/70 97 Room Air I reviewed Intake & Output 12/07 1600 12/07 0800 12/07 0000 Intake Total 520 1080 1250 Output Total 500 300 Balance 20 780 1250 Intake, IV 500 1000 1150 Intake, Oral 20 80 100 Number 0 Bowel Movements Output, Urine 500 300 Patient 285 lb Weight Weight Reported by Patient Measurement Method Physical Exam: Constitutional: pleasant, no acute distress, conversant Eyes: sclera anicteric ENMT: ears and nose atraumatic, moist mucous membranes, good dentition, no lip lesions Neck: Supple, trachea is midline, no cervical or supraclavicular adenopathy and no palpable thyromegaly Cardiovascular: S1, S2, no murmurs, no peripheral edema Respiratory: clear to auscultation with normal respiratory effort and no intercostal retractions GI: abdomen soft, nontender, but distended, no palpable hepatosplenomegaly Extremities / lymphatics: symmetrically warm, free range of motion no peripheral edema, no cervical, supraclavicular, axillary, or inguinal adenopathy Musculoskeletal: Did not evaluate gait and station, no digital cyanosis, good muscle strength and tone no atrophy, motor grossly 5 out of 5 throughout Skin: no jaundice, no rashes warm, nondiaphoretic, no areas of erythema or induration Psychiatric: mood and affect are appropriate and alert and oriented to person place and time Last 24 Hrs of Labs/Sammy: I reviewed Laboratory Tests 12/07/1646: Carcinoembryonic Ag Pending 12/07/16 0746: Anion Gap 7, Estimated GFR > 60, BUN/Creatinine Ratio 13.3, CBC w Diff MAN DIFF ORDERED, RBC 4.38, MCV 63.5 L, MCH 19.0 L, RDW 20.5 H, MPV 8.0, Segmented Neutrophils 76 H, Lymphocytes 8 L, Monocytes 16 H, Platelet Estimate VERIFIED BY SMEAR, Polychromasia 1+, Hypochromic-Microcytic 2+, Anisocytosis 1+, Microcytic Cells 2+, PUBS MCHC 30.0 L 12/06/16 1924: Urinalysis LIGHT H, Urine Color YEL, Urine Clarity CLEAR, Urine pH 7.5, Ur Specific [place] 1.010, Urine Protein TRACE H, Urine Ketones 15 H, Urine Nitrite NEG, Urine Bilirubin NEG, Urine Urobilinogen 1.0, Ur Leukocyte Esterase NEG, Ur Microscopic SEDIMENT EXAMINED, Urine WBC 1-3 H, Ur Epithelial Cells FEW , Urine Hemoglobin NEG, Urine Glucose NEG I reviewed his last night CT scan on PACS myself there is no prior for comparison and shows some moderately dilated loops of small bowel with a collapsed colon starting at the cecum there is no free fluid or obvious twisting Assessment/Plan Assessment/Plan: Impression is small bowel obstruction in a virgin abdomen in a patient who's anemic was not had a prior colonoscopy but negative family history the CT doesn' t show an obvious mass but it is a transition point with consult to gastroenterology to evaluate for colonoscopy in the meantime treat has a small bowel obstruction, which I explained to her that it is often exacerbated by an unusual meal high in fiber or chewy food, or even straining, her recent history does not suggest this however. Given the significant chance that we may need to operate, will get a cardiology evaluation. In the meantime will treat in routine nonoperative fashion with bowel rest, NG tube for decompression, maintenance IV fluids and for the GI losses, monitor uo, electrolytes, vital signs, serial exams, labs, abdominal x-rays. Presently there are no peritoneal signs, if situation plateaus or worsens, especially if abdominal pain worsens in next 6-12 hours, might need urgent surgical intervention in the interest of bowel viability, but as I explained, most of the time it is not needed. And in her case if it is obstruction in the colon she may need a right hemicolectomy which we prefer not to do emergently on unprepped colon on undecompressed stomach and small bowel, not optimized by medicine or cardiology and overweight patient. Addendum Of note she had a multiview later today I reviewed on PACS myself and it still shows small bowel obstruction so I've urged her to re-accept an NG tube she does have risk of aspiration from vomiting. As Ranked By This Provider Problem List: 1. Small bowel obstruction 2. Iron deficiency anemia 3. Nausea & vomiting 4. Abdominal pain
[2016-12-07 22:35] VITALS: BP 132/78
[2016-12-08 06:41] VITALS: BP 142/80
--- NOTE | 2016-12-08 07:55 | PN- General Surgery ---
See Addendum Subjective Subjective: Pt. reports having pain across from her abdomen over night but managable with Tylenol. Denies passing gas, no BM's Very teary this morning, states worried about having malignant tumor, worring about diagnosis. Objective Vital Signs and I&Os Vital Signs Date Time Temp Pulse Resp B/P B/P Pulse O2 O2 Flow FiO2 Mean Ox Delivery Rate 12/08 0641 98.2 80 18 142/80 97 Room Air 12/07 2235 98.0 74 18 132/78 95 Room Air 12/07 2145 130/70 12/07 1441 97.3 79 18 140/60 97 Room Air Intake & Output 12/08 0800 12/08 0000 12/07 1600 12/07 0800 12/07 0000 12/06 1600 Intake Total 302 674 4547 1250 Output Total 350 500 500 300 Balance -350 100 20 780 1250 Intake, IV 661 595 4681 1150 Intake, Oral 20 80 100 Number 0 Bowel Movements Output, Urine 350 500 500 300 Patient 285 lb Weight Weight Reported by Patient Measurement Method Alert, orientned, appropriate, non toxic looking Cor regular Lungs clear bilat. Abdomen ; obese, presently not tender to palpation or percussion, non distended. Extr. mild to mod. peripheral edema, Assessment/Plan Assessment/Plan 66 y o morbidly obese female with hx of HTN admitted with SBO/ dilated SB loops and findings of ileocecal mass as transition point by CT scan, possible/ likely malignancy. Has elevated CEA. GI note yesterday appreciated;unlikely colonoscopy due to dilated SB and high risk of perforation, unable to bowel prep. to evaluate remaining colon. Likely operative procedure/ right colectomy due to obstructive symptoms which is to be scheduled by surgeon Clinically she has been essentially unchanged over last 24 hrs ; has intermittent abdominal pains relieved with Tylenol; has no evidence bowel fxn, has intermittent nausea. AXR yesterday with persistent SB dilitation up to 4 cm, no pneumotosis,has paucity gas in colon. She would benefit from NGT decompression preop. She likely needs preop cardiac evaluation/ risk stratification due to morbid obesity, HTN, limited functional capacity due to arthritis. Preop labs are pending, will follow results. Will discuss above with surgeon. Core Measures/Miscellaneous Venous Thromboembolism VTE Risk Factors: Age > 40 VTE Contraindications: No Contraindications VTE Diagnosis: No VTE Type: NONE VTE Confirmed by (Test): NONE Beta Yumiko Is Beta Ymuiko a Home Med? No Antibiotics Is Patient on Antibiotics? No
[2016-12-08 08:23] LABS: MEAN CORPUSCULAR HGB 18.9 PG (27.0-31.0); MEAN CORPUSCULAR HGB CONC 29.6 G/DL (33.0-37.0); MEAN PLATELET VOLUME 7.9 FL (7.4-10.4); PLATELET COUNT 283 /CUMM (130-400); RBC DISTRIBUTION WIDTH 20.4 % (11.5-14.5); RED BLOOD CELL CT 4.23 /CUMM (4.20-5.40); WHITE BLOOD CELL COUNT 6.7 /CUMM (4.8-10.8)
--- NOTE | 2016-12-08 08:43 | Cons- Cardiology ---
General Information and HPI Consulting Request Date of Consult: 12/08/16 Requested By: OSMANI KNOTT,CHERI Phillips Reason for Consult: preoperative assessment Source of Information: patient, old records History of Present Illness: 66 year old female with no known cardiac history admitted to the surgical service with SBO and abdominal mass. I am seeing the patient for preoperative evaluation prior to possible surgical intervention. The patient has a history of HTN but no other known CV history She is relatively limited from an activity standpoint but denies any history of exertional symptoms or any symptoms to suggest cardiovascular disease. Allergies/Medications Allergies: Coded Allergies: No Known Allergies (12/06/16) Home Med List: Lisinopril 10 MG TABLET 1 TAB PO DAILY HTN (Reported) Current Medications: Current Medications Sig/Alexis Start time Last Medication Dose Route Stop Time Status Admin Acetaminophen 650 MG .STK-MED ONE 12/08 1827 DC PO 12/07 182 Acetaminophen 650 MG Q6PRN PRN 12/06 194 AC 12/08 PO 0221 Dextrose/Sodium 1,000 ML .Q8H 12/06 194 AC 12/08 Chloride IV 0509 Heparin Sodium 5,000 UNIT Q8 12/06 2200 AC 12/08 (Porcine) SC 0509 Lisinopril 10 MG 2000 12/08 1999 AC 12/07 PO 2145 Lisinopril 10 MG DAILY 12/07 1000 DC PO Morphine Sulfate 1 MG Q3P PRN 12/06 1944 AC IV Morphine Sulfate 2 MG Q3P PRN 12/06 1944 AC IV Ondansetron HCl 4 MG Q8P PRN 12/06 194 AC 12/08 IV 0216 Zolpidem Tartrate 5 MG AT BEDTIME NEED.. 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 FATHER, , Age 94; Cause: Old age. Psychosocial History Where Do You Live? Home Who Do You Live With? self Services at Home: None Primary Language: French Smoking Status: Former Smoker (1 pk yr cigarettes, D/C age 19) ETOH Use: denies use Illicit Drug Use: denies illicit drug use Living Will? no Power of Restaurant Shift Supervisor/HCP? no Other Social History: Single. Lives alone. Remote 1 pk yr cigarette smoker, D/C age 19. No EtOH. 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 1 son, Arik 41, [employer] (in room during GI consult, as per patient). Uses cane. Functional Ability ADLs Independent: dressing, eating, toileting, bathing. Ambulation: cane IADLs Independent: shopping, housework, finances, food prep, telephone, transportation , medication admin. Employment History Employment: Retired Profession/Employer Retired from [employer] Exam & Diagnostic Data Vital Signs and I&O Vital Signs Date Time Temp Pulse Resp B/P B/P Pulse O2 O2 Flow FiO2 Mean Ox Delivery Rate 12/08 640 98.2 80 18 142/80 97 Room Air 12/07 2235 98.0 74 18 132/78 95 Room Air 12/07 2145 130/70 12/07 1441 97.3 79 18 140/60 97 Room Air Intake & Output 12/08 1600 12/08 0800 12/08 0000 12/07 1600 12/07 0800 12/07 0000 Intake Total 366 201 8502 1250 Output Total 350 500 500 300 Balance -350 100 20 780 1250 Intake, IV 722 999 2814 1150 Intake, Oral 20 80 100 Number 0 Bowel Movements Output, Urine 350 500 500 300 Patient 285 lb Weight Weight Reported by Patient Measurement Method Physical Exam: WD; overweight WF; A and O x 3; VSS HEENT: normal NEck: JVP normal; carotids normal bilaterally Chest: clear bilaterally Heart: S1; S2; 1/6 systolic murmur; S4 Abdomen: distended and non tender Ext: trace to 1+ edema; Pulses normal Labs/Sammy Results: Laboratory Tests 12/08 12/07 12/07 0720 0746 0746 Chemistry Sodium (137 - 145 mmol/L) Pending 139 Potassium (3.5 - 5.1 mmol/L) Pending 4.7 Chloride (98 - 107 mmol/L) Pending 106 Carbon Dioxide (22 - 30 mmol/L) Pending 26 Anion Gap (5 - 16) Pending 7 BUN (7 - 17 mg/dL) Pending 8 Creatinine (0.5 - 1.0 mg/dL) Pending 0.6 Estimated GFR (>60 ml/min) > 60 BUN/Creatinine Ratio (7 - 25 %) Pending 13.3 Carcinoembryonic Ag (() ng/mL) 13.1 H Hematology CBC w Diff Pending MAN DIFF ORDERED WBC (4.8 - 10.8 /CUMM) Pending 8.8 RBC (4.20 - 5.40 /CUMM) Pending 4.38 Hgb (12.0 - 16.0 G/DL) Pending 8.3 L Hct (37 - 47 %) Pending 27.8 L MCV (81.0 - 99.0 FL) Pending 63.5 L MCH (27.0 - 31.0 PG) Pending 19.0 L RDW (11.5 - 14.5 %) Pending 20.5 H Plt Count (130 - 400 /CUMM) Pending 311 MPV (7.4 - 10.4 FL) Pending 8.0 Segmented Neutrophils (42.2 - 75.2 %) 76 H Lymphocytes (20.5 - 51.1 %) 8 L Monocytes (1.7 - 9.3 %) 16 H Platelet Estimate (ADEQUATE) VERIFIED BY SMEAR Polychromasia 1+ Hypochromic-Microcytic 2+ Anisocytosis 1+ Microcytic Cells 2+ PUBS MCHC (33.0 - 37.0 G/DL) Pending 30.0 L 12/06 12/06 1924 1650 Chemistry Sodium (137 - 145 mmol/L) 139 Potassium (3.5 - 5.1 mmol/L) 4.4 Chloride (98 - 107 mmol/L) 103 Carbon Dioxide (22 - 30 mmol/L) 21 L Anion Gap (5 - 16) 15 BUN (7 - 17 mg/dL) 9 Creatinine (0.5 - 1.0 mg/dL) 0.6 Estimated GFR (>60 ml/min) > 60 BUN/Creatinine Ratio (7 - 25 %) 15.0 Glucose (65 - 99 mg/dL) 127 H Calcium (8.4 - 10.2 mg/dL) 9.4 Total Bilirubin (0.2 - 1.3 mg/dL) 0.6 AST (14 - 36 U/L) 13 L ALT (9 - 52 U/L) 16 Alkaline Phosphatase (<127 U/L) 139 H Troponin I (< 0.11 ng/ml) < 0.01 Total Protein (6.3 - 8.2 g/dL) 6.9 Albumin (3.5 - 5.0 g/dL) 4.0 Globulin (1.9 - 4.2 gm/dL) 2.9 Albumin/Globulin Ratio (1.1 - 2.2 %) 1.4 Amylase (30 - 110 U/L) < 30 L Lipase (23 - 300 U/L) 44 Hematology CBC w Diff MAN DIFF ORDERED WBC (4.8 - 10.8 /CUMM) 13.6 H RBC (4.20 - 5.40 /CUMM) 4.85 Hgb (12.0 - 16.0 G/DL) 9.1 L Hct (37 - 47 %) 31.0 L MCV (81.0 - 99.0 FL) 64.0 L MCH (27.0 - 31.0 PG) 18.8 L RDW (11.5 - 14.5 %) 20.3 H Plt Count (130 - 400 /CUMM) Segmented Neutrophils (42.2 - 75.2 %) 94 H Band Neutrophils (0.0 - 5.0 %) 1 Lymphocytes (20.5 - 51.1 %) 3 L Monocytes (1.7 - 9.3 %) 2 Platelet Estimate (ADEQUATE) Hypochromic-Microcytic 1+ Anisocytosis 1+ Microcytic Cells 1+ PUBS MCHC (33.0 - 37.0 G/DL) 29.4 L Urines Urinalysis LIGHT H Urine Color (YEL,AMB,STR) YEL Urine Clarity (CLEAR) CLEAR Urine pH (5.0 - 8.0) 7.5 Ur Specific [place] (1.001 - 1.035) 1.010 Urine Protein (NEG,<30 MG/DL) TRACE H Urine Ketones (NEG) 15 H Urine Nitrite (NEG) NEG Urine Bilirubin (NEG) NEG Urine Urobilinogen (0.1 - 1.0 EU/dl) 1.0 Ur Leukocyte Esterase (NEG) NEG Ur Microscopic SEDIMENT EXAMINED Urine WBC (0 - 2 /HPF) 1-3 H Ur Epithelial Cells (NONE,FEW) FEW Urine Hemoglobin (NEG) NEG Urine Glucose (N MG/DL) NEG Diagnostic Data EKG Results NSR Other Results Abdominal CT: IMPRESSION: Findings of small bowel obstruction with suggestion of the transition zone in the region of the ileocecal valve, where there is a 3 x 4 cm soft tissue density. There is an enlarged right mesenteric lymph node. The gallbladder is a slightly over distended, up to 10.3 cm in longest diameter, however there are no CT evidence of acute cholecystitis. Assessment/Plan Assessment/Plan Assessment: 1. SBO with abdominal mass 2. HTN 3. Obesity 4. Microcytic anemia Recommendations: - The patient appears generally stable from a cardiovascular standpoint with no symptoms to suggest active cardiovascular disease despite her risk factors ( obesity, HTN, etc.). Her examination, other than for her weight, is unremarkable. - Echocardiogram to assess LV function. - AT the moment, barring any unforeseen issues, I believe the patient should tolerate the proposed surgery if needed. Please check ECG post operatively Consult Acknowledgment - Thank you for your consult request.
--- NOTE | 2016-12-08 14:43 | RADIOLOGY REPORT ---
EXAMINATION: XR ABDOMEN WITH PA CHEST CLINICAL INDICATION: NG tube placement. COMPARISON: 12/07/2016. TECHNIQUE: Chest, PA view Abdomen, 2 views FINDINGS: Large body habitus. Lungs are hypoinflated and mild atelectasis is present in the left lung base. No pulmonary consolidation or pleural effusion. Cardiac silhouette is normal in size. Nasogastric tube extends below the diaphragm, its tip located in the region of the gastric body. The side port of the tube is just distal to the expected region of the esophagogastric junction. There is persistent gaseous distention of small bowel without evidence of pneumoperitoneum. An increased amount of gas is present in the colon. IMPRESSION: 1. Persistent small bowel obstruction. 2. The tip of the NG tube is in the region of the gastric body.
[2016-12-08 14:44] VITALS: BP 140/80
--- NOTE | 2016-12-08 18:06 | PN- General Surgery ---
Subjective Subjective: Follow-up for small bowel obstruction, NG tube placed earlier today for increased nausea, her abdominal discomfort is slightly better she feels rumbling like things are moving but still no gas or bowel movements Objective Vital Signs and I&Os I reviewed Vital Signs Date Time Temp Pulse Resp B/P B/P Pulse O2 O2 Flow FiO2 Mean Ox Delivery Rate 12/08 1444 97.8 66 20 140/80 96 / 0641 98.2 80 18 142/80 97 Room Air 12/07 2235 98.0 74 18 132/78 95 Room Air 12/07 2145 130/70 I reviewed Intake & Output 12/08 1600 12/08 0800 12/08 0000 12/07 1600 12/07 0800 12/07 0000 Intake Total 800 847 190 8321 1250 Output Total 950 350 500 500 300 Balance -150 -350 100 20 780 1250 Intake, IV 700 913 396 2680 1150 Intake, Oral 20 80 100 Intake, Other 100 Number 0 Bowel Movements Output, 200 Gastric Drainage Output, Stool 250 Output, Urine 500 350 500 500 300 Patient 285 lb 285 lb Weight Weight Reported by Patient Measurement Method Physical Exam: Constitutional: no acute distress no pain Eyes: sclera anicteric ENMT: moist mucous membranes Cardiovascular: S1-S2 no murmurs no peripheral edema Respiratory: clear to auscultation with normal respiratory effort and no intercostal retractions GI: abdomen soft and minimally tender minimally distended, bowel sounds normal on auscultation Extremities / lymphatics: free range of motion no peripheral edema Skin: no jaundice no rashes warm, nondiaphoretic Psychiatric: mood and affect are appropriate and alert and oriented to person place and time Current Medications: I reviewed Current Medications Sig/Alexis Start time Last Medication Dose Route Stop Time Status Admin Acetaminophen 650 MG .STK-MED ONE 12/08 0221 DC PO 12/08 022 Acetaminophen 650 MG .STK-MED ONE 12/07 182 DC PO 12/07 182 Acetaminophen 650 MG Q6PRN PRN 12/06 1944 AC 12/08 PO 022 Dextrose/Sodium 1,000 ML .Q8H 12/06 1944 AC 12/08 Chloride IV 1423 Heparin Sodium 5,000 UNIT Q8 12/06 2200 AC 12/08 (Porcine) SC 1423 Lisinopril 10 MG 12/07 AC 12/07 PO 214 Morphine Sulfate 1 MG Q3P PRN 12/06 1944 AC IV Morphine Sulfate 2 MG Q3P PRN 12/06 1944 AC IV Ondansetron HCl 4 MG .STK-MED ONE 12/09 215 DC IM 12/08 216 Ondansetron HCl 4 MG Q8P PRN 12/06 1944 AC 12/08 IV 0216 Phenol 2 SPRAY Q2P PRN 12/08 944 AC 12/08 EXT 1108 Zolpidem Tartrate 5 MG AT BEDTIME NEED.. 12/06 1944 AC PO Results Last 48 Hours of Labs: I reviewed Laboratory Tests 12/08 12/07 07 0746 Chemistry Sodium (137 - 145 mmol/L) 140 Potassium (3.5 - 5.1 mmol/L) 4.4 Chloride (98 - 107 mmol/L) 106 Carbon Dioxide (22 - 30 mmol/L) 28 Anion Gap (5 - 16) 6 BUN (7 - 17 mg/dL) 6 L Creatinine (0.5 - 1.0 mg/dL) 0.6 Estimated GFR (>60 ml/min) > 60 BUN/Creatinine Ratio (7 - 25 %) 10.0 Carcinoembryonic Ag (() ng/mL) 13.1 H Hematology CBC w Diff MAN DIFF ORDERED WBC (4.8 - 10.8 /CUMM) 6.7 RBC (4.20 - 5.40 /CUMM) 4.23 Hgb (12.0 - 16.0 G/DL) 8.0 L Hct (37 - 47 %) 27.0 L MCV (81.0 - 99.0 FL) 64.0 L MCH (27.0 - 31.0 PG) 18.9 L RDW (11.5 - 14.5 %) 20.4 H Plt Count (130 - 400 /CUMM) 283 MPV (7.4 - 10.4 FL) 7.9 Segmented Neutrophils (42.2 - 75.2 %) 78 H Lymphocytes (20.5 - 51.1 %) 13 L Monocytes (1.7 - 9.3 %) 8 Basophils (0.0 - 2.0 %) 1 Platelet Estimate (ADEQUATE) VERIFIED BY SMEAR Polychromasia 1+ Hypochromic-Microcytic 2+ Anisocytosis 2+ Microcytic Cells 2+ PUBS MCHC (33.0 - 37.0 G/DL) 29.6 L 12/07 12/06 0746 1924 Chemistry Sodium (137 - 145 mmol/L) 139 Potassium (3.5 - 5.1 mmol/L) 4.7 Chloride (98 - 107 mmol/L) 106 Carbon Dioxide (22 - 30 mmol/L) 26 Anion Gap (5 - 16) 7 BUN (7 - 17 mg/dL) 8 Creatinine (0.5 - 1.0 mg/dL) 0.6 Estimated GFR (>60 ml/min) > 60 BUN/Creatinine Ratio (7 - 25 %) 13.3 Hematology CBC w Diff MAN DIFF ORDERED WBC (4.8 - 10.8 /CUMM) 8.8 RBC (4.20 - 5.40 /CUMM) 4.38 Hgb (12.0 - 16.0 G/DL) 8.3 L Hct (37 - 47 %) 27.8 L MCV (81.0 - 99.0 FL) 63.5 L MCH (27.0 - 31.0 PG) 19.0 L RDW (11.5 - 14.5 %) 20.5 H Plt Count (130 - 400 /CUMM) 311 MPV (7.4 - 10.4 FL) 8.0 Segmented Neutrophils (42.2 - 75.2 %) 76 H Lymphocytes (20.5 - 51.1 %) 8 L Monocytes (1.7 - 9.3 %) 16 H Platelet Estimate (ADEQUATE) VERIFIED BY SMEAR Polychromasia 1+ Hypochromic-Microcytic 2+ Anisocytosis 1+ Microcytic Cells 2+ PUBS MCHC (33.0 - 37.0 G/DL) 30.0 L Urines Urinalysis LIGHT H Urine Color (YEL,AMB,STR) YEL Urine Clarity (CLEAR) CLEAR Urine pH (5.0 - 8.0) 7.5 Ur Specific [place] (1.001 - 1.035) 1.010 Urine Protein (NEG,<30 MG/DL) TRACE H Urine Ketones (NEG) 15 H Urine Nitrite (NEG) NEG Urine Bilirubin (NEG) NEG Urine Urobilinogen (0.1 - 1.0 EU/dl) 1.0 Ur Leukocyte Esterase (NEG) NEG Ur Microscopic SEDIMENT EXAMINED Urine WBC (0 - 2 /HPF) 1-3 H Ur Epithelial Cells (NONE,FEW) FEW Urine Hemoglobin (NEG) NEG Urine Glucose (N MG/DL) NEG Assessment/Plan Assessment/Plan I reviewed today's multiview abdomen on PACS myself compared to yesterday small bowel loops are still dilated but the arrangement is different more scattered and there is some gas in the colon Impression is small bowel obstruction being managed nonoperatively NG tube is in place, overall she's stabilizing more gas in the colon suggests partial not complete obstruction but on the other hand a CEA of 13 is ominous. She probably will not be able to tolerate a full bowel prep, discussed with my colleague who was covering and probably will proceed tomorrow with a right hemicolectomy. Appreciate cardiology evaluation. Problem List: 1. Small bowel obstruction 2. Intestinal mass 3. Iron deficiency anemia 4. Abdominal pain Core Measures/Miscellaneous Venous Thromboembolism VTE Risk Factors: Age > 40 VTE Contraindications: No Contraindications VTE Diagnosis: No VTE Type: NONE VTE Confirmed by (Test): NONE Beta Yumiko Is Beta Yumiko a Home Med? No Antibiotics Is Patient on Antibiotics? No
[2016-12-08 22:34] VITALS: BP 140/70
--- NOTE | 2016-12-08 23:35 | NUR ---
THIS RNS WHOLE SHIFT PTS NGT OUTPUT BROWNISH. AT THIS TIME, RN NOTICED IT TO BE BRIGHT RED IN COLOR IN TUBING AND INTO CANISTER. SURGICAL PA YANG NOTIFIED. PER SURGICAL PA, IT IS OK AND HE WILL ORDER PROTONIX. REPORT PASSED TO NEXT SHIFT RN.
[2016-12-09 06:56] VITALS: BP 150/60
[2016-12-09 08:15] LABS: PT 11.7 SEC (9.4-12.5)
--- NOTE | 2016-12-09 10:29 | PN- General Surgery ---
Surgical Brief Attending Note Brief Attending Note: MINIMAL IMPROVEMENT. PLAN FOR EXPLORATORY LAPAROTOMY WITH RIGHT COLECTOMY TODAY. PATIENT AGREEABLE.
[2016-12-09 12:27] VITALS: BP 142/78
--- NOTE | 2016-12-09 13:38 | PN- Cardiology ---
Subjective Subjective: The patient has remained stable from a cardiac perspective. Echocardiogram performed this morning. Awaiting OR today. Objective Vital Signs and I&Os Vital Signs Date Time Temp Pulse Resp B/P B/P Pulse O2 O2 Flow FiO2 Mean Ox Delivery Rate 12/09 1227 98.9 80 16 142/78 95 Room Air 12/09 0656 98.4 76 20 150/60 94 Room Air 12/09 0000 90 Room Air 12/08 2234 98.1 79 20 140/70 90 Room Air 12/08 2012 90 148/80 12/08 1444 97.8 66 20 140/80 96 Intake & Output 12/09 1600 12/09 0800 12/09 0000 12/08 1600 12/08 0800 12/08 0000 Intake Total 1000 1000 800 600 Output Total 850 900 950 350 500 Balance 150 100 -150 -350 100 Intake, IV 1000 1000 700 600 Intake, Oral 0 0 Intake, Other 100 Number 0 Bowel Movements Output, 150 300 200 Gastric Drainage Output, Stool 250 Output, Urine 700 600 500 350 500 Patient 285 lb Weight Current Medications: Current Medications Sig/Alexis Start time Last Medication Dose Route Stop Time Status Admin Acetaminophen 650 MG Q6PRN PRN 12/06 1944 AC 12/08 PO 0221 Dextrose/Sodium 1,000 ML .Q8H 12/06 1944 AC 12/09 Chloride IV 1215 Heparin Sodium 5,000 UNIT Q8 12/06 2199 AC 12/09 (Porcine) SC 0647 Lisinopril 10 MG 12/07 AC 12/08 PO 2012 Morphine Sulfate 1 MG Q3P PRN 12/06 1944 AC IV Morphine Sulfate 2 MG Q3P PRN 12/06 1944 AC IV Ondansetron HCl 4 MG Q8P PRN 12/06 1944 AC 12/08 IV 0216 Pantoprazole Sodium 40 MG DAILY 12/09 010 AC 12/09 IV 1050 Phenol 2 SPRAY Q2P PRN 12/08 0945 AC 12/08 EXT 1108 Zolpidem Tartrate 5 MG AT BEDTIME NEED.. 12/06 1944 AC PO Results Last 48 Hrs of Labs/Mics: Laboratory Tests 12/09/16 0725: Anion Gap 8, Estimated GFR > 60, BUN/Creatinine Ratio 7.1, PT 11.7, INR 1.12 12/08/16 0720: Anion Gap 6, Estimated GFR > 60, BUN/Creatinine Ratio 10.0, CBC w Diff MAN DIFF ORDERED, RBC 4.23, MCV 64.0 L, MCH 18.9 L, RDW 20.4 H, MPV 7.9, Segmented Neutrophils 78 H, Lymphocytes 13 L, Monocytes 8, Basophils 1, Platelet Estimate VERIFIED BY SMEAR, Polychromasia 1+, Hypochromic-Microcytic 2+, Anisocytosis 2+, Microcytic Cells 2+, PUBS MCHC 29.6 L Assessment/Plan Assessment/Plan Assessment: 1. SBO with abdominal mass 2. HTN 3. Obesity 4. Microcytic anemia Recommendations: -The patient's examination, ECG, and echocardiogram performed today showed no significant abnormalities. Her left ventricular function is normal. There is no significant valvular disease. She does have evidence of moderate pulmonary hypertension which may, conceivably, be a manifestation of underlying sleep apnea syndrome. -From a cardiac perspective, I see no contraindication to today surgery. -Please check an ECG postoperatively and again tomorrow.
--- NOTE | 2016-12-09 17:00 | NUR ---
PT TAKEN VIA STRETCHER TO OR. DENTURES AND GLASSES LEFT AT BEDSIDE.
--- NOTE | 2016-12-09 19:36 | Operative Report ---
Operative/Inv Procedure Report Surgery Date: 12/09/16 Name of Procedure: Exploratory laparotomy with right hemicolectomy Pre-Operative Diagnosis: SBO Post-Operative Diagnosis: Intestinal obstruction due to obstructing right colonic mass Estimated Blood Loss: less than 50ml Surgeon/Livery Car Driver: Teddy Carmichael M.D./Tyron SIMONS Anesthesia: general endotracheal tube Specimens: Right colon Operative Indication: 66-year-old woman with intestinal obstruction and chronic anemia. CT scan findings show concern for right colonic neoplasm as the etiology. She has nonresolution of her obstruction and presents for exploration Operative/Procedure Note Note: After informed consent patient brought to the operative laid supine. Gen. anesthesia was obtained and her abdomen was prepped and draped. The skin in the epigastrium was incised sharply and the subcutaneous tissues tissues dissected with cautery and blunt dissection. We incised the fascia along the linea alba with cautery. The peritoneum was entered sharply. The abdomen was explored. There is mild distal small bowel dilatation down to the ligament of Treitz and into the right colon. In the mid right colon there was a large palpable mass. The right colon was relatively mobile making dissection a little bit more easy. She was however morbidly obese. Bookwalter retraction system was employed. Small bowel was packed over to the left abdomen. We began by taking down the white line of Toldt with cautery up to and around the hepatic flexure. This allowed us to mobilize the colon up into the wound. The duodenum was identified and mesentery dissected free from it. We dissected the ileum off of the retroperitoneal attachments with cautery. At this point we chose a line of transection in the distal ileum. A window in the mesentery was developed with cautery. The ileum was divided with the SOLEDAD 80 stapler. We scored the mesentery medially with cautery. We then took the mesentery with LigaSure device. High ligation of the right colic artery was taken. Carried dissection up to the right-sided transverse colon. This point we chose a line of distal transection. The mesentery was taken up to the bowel wall with LigaSure. The omentum was divided with LigaSure. We then divided the colon with the SOLEDAD stapler. The colon was passed off the field. A lbse-[id number]-[id number] anastomosis was then created. Small bowel was moderately edematous and not ischemic. I felt that there was good viability and that anastomotic leak risk would be low. We lined up the bowel and attached it temporarily with interrupted 3-0 silk sutures. Enterotomies were created with cautery and a azzt-gi-exfk anastomosis was created along the tinea. This was done with a SOLEDAD stapler. The common enterotomy was then closed with a reload of the SOLEDAD 80. Suture in the crotch of the anastomosis place with 3-0 silk. The perineal cavity was then irrigated with normal saline. The packs were removed. Laparotomy counts were correct. We then replaced omentum over the bowel and closed the fascia with a running 0 Maxon suture. The wound was irrigated with saline and hemostasis achieved with cautery. The skin was closed with kenzie. Sterile dressings were applied. Sponge and needle counts are correct Findings: Obstructing right colon cancer CC: ROQUE KNOTT,PRIYA Leon
--- NOTE | 2016-12-09 20:03 | ECHOCARDIOGRAM REPORT ---
NADYA CREWS Age: 66 : 1950 Gender: F Exam Date: 12/09/2016 08:59 Exam Location: [place] Ht (in): 67 Wt (lb): 285 BSA: 2.54 BP: 150 / 60 Ordering Physician: BRITTANIE CHINO PA Referring Physician: BRITTANIE CHINO PA Technologist: Duglas Hannon [facility] Room Number: 237-1 Indications: Pre-op Rhythm: Sinus Technical Quality: Fair, Technically difficult study FINDINGS Left Ventricle Normal global left ventricular size, wall thickness, systolic function with no obvious regional wall motion abnormalities. Normal left ventricular ejection fraction estimated at 55-60%. Right Ventricle Right ventricle not well visualized. Right Atrium Right atrium not well visualized, grossly normal. Left Atrium Mild left atrial dilatation. Mitral Valve Structurally normal mitral valve. Trace mitral regurgitation. Aortic Valve Trileaflet aortic valve. Diffuse thickening (sclerosis) of the aortic valve cusps without reduced excursion. No aortic stenosis. No aortic regurgitation. Tricuspid Valve Tricuspid valve not well visualized, grossly normal. Mild tricuspid regurgitation. Right ventricular systolic pressure estimated to be elevated at 55 mmHg. Pulmonic Valve Pulmonic valve not well visualized, grossly normal. Pericardium No pericardial effusion. Great Vessels Aortic root and proximal ascending aorta not well visualized, grossly normal. CONCLUSIONS 1. This was a technically difficult examination. 2. Mild aortic sclerosis is present with no valvular stenosis or insufficiency. 3. Minimal mitral insufficiency is present. 4. There is no pericardial fluid detected. 5. The left ventricular chamber size and systolic function are normal 6. The right heart structures were not optimally visualized. Mild tricuspid insufficiency is present with pulmonary hypertension and an estimated RV systolic pressure of 55 mmHg. Michelle Dumont M.D. (Electronically Signed) Final Date: 09 December 2016 20:02 MEASUREMENTS (Male / Female) Normal Values 2D ECHO LV Diastolic Diameter PLAX 4.9 cm 4.2 - 5.9 / 3.9 - 5.3 cm LV Systolic Diameter PLAX 2.1 cm 2.1 - 4.0 cm LV Fractional Shortening PLAX 57.1 % 25 - 46 % LV Ejection Fraction 2D Teich 87.2 % IVS Diastolic Thickness 1.0 cm LVPW Diastolic Thickness 1.2 cm LV Relative Wall Thickness 0.4 RV Internal Dim ED PLAX 2.7 cm 1.9 - 3.8 cm LVOT Diameter 2.2 cm Aortic Root Diameter 3.1 cm LA Systolic Diameter LX 3.3 cm 3.0 - 4.0 / 2.7 - 3.8 cm Ascending Aorta Diameter 3.0 cm DOPPLER AV Peak Velocity 141.0 cm/s AV Peak Gradient 8.0 mmHg AV Mean Velocity 97.5 cm/s AV Mean Gradient 4.0 mmHg AV Velocity Time Integral 29.8 cm LVOT Peak Velocity 132.0 cm/s LVOT Peak Gradient 7.0 mmHg LVOT Mean Velocity 85.4 cm/s LVOT Mean Gradient 4.0 mmHg LVOT Velocity Time Integral 30.5 cm LVOT Stroke Volume 115.9 cm AV Area Cont Eq vti 3.9 cm AV Area Cont Eq pk 3.6 cm MV Peak Velocity 113.0 cm/s MV Peak Gradient 5.1 mmHg MV Mean Velocity 74.0 cm/s MV Mean Gradient 3.0 mmHg Mitral E Point Velocity 92.3 cm/s Mitral A Point Velocity 112.0 cm/s Mitral E to A Ratio 0.8 MV PHT Velocity 117.0 cm/s MV Deceleration [place] 535.0 cm/s MV Pressure Half Time 65.6 ms MV Area PHT 3.4 cm MV Deceleration Time 232.0 ms TR Peak Velocity 354.0 cm/s TR Peak Gradient 50.1 mmHg Right Atrial Pressure 10.0 mmHg Pulmonary Artery Systolic Pressu 60.1 mmHg Right Ventricular Systolic Press 60.1 mmHg PV Peak Velocity 128.0 cm/s PV Peak Gradient 6.6 mmHg PV Mean Velocity 87.8 cm/s PV Mean Gradient 4.0 mmHg PV Velocity Time Integral 32.4 cm LV E' Lateral Velocity 9.7 cm/s Mitral E to LV E' Lateral Ratio 9.6 LV E' Septal Velocity 8.2 cm/s Mitral E to LV E' Septal Ratio 11.3
[2016-12-09 23:02] VITALS: BP 140/70
[2016-12-10 01:16] VITALS: BP 136/68
[2016-12-10 03:06] VITALS: BP 138/70
[2016-12-10 06:57] VITALS: BP 130/76
[2016-12-10 08:54] LABS: HEMATOCRIT 28.3 % (37-47); MEAN CORPUSCULAR HGB 18.9 PG (27.0-31.0); MEAN CORPUSCULAR HGB CONC 29.5 G/DL (33.0-37.0); MEAN CORPUSCULAR VOLUME 64.2 FL (81.0-99.0); MEAN PLATELET VOLUME 8.2 FL (7.4-10.4); PLATELET COUNT 253 /CUMM (130-400); RBC DISTRIBUTION WIDTH 20.7 % (11.5-14.5); RED BLOOD CELL CT 4.41 /CUMM (4.20-5.40)
--- NOTE | 2016-12-10 09:22 | PN- Student ---
See Addendum EDNA SHRESTHA 12/10/16 0909: Subjective Subjective: Patient seen this am with no current complaints. Reports still feeling "out of it" since surgery. Denies chest/abdominal pain, SOB, headaches and dizziness. States she felt nauseous yesterday but has since resolved with medication. Reports mild cough and tearing from her left eye. Objective Objective: Vital Signs Result Date Time Pulse Ox 98 12/10 656 B/P 130/76 12/10 656 O2 Delivery Nasal Cannula 12/10 656 O2 Flow Rate 2.0L 12/10 656 Temp 97.5 12/10 656 Pulse 62 12/10 656 Resp 20 12/10 656 Intake & Output 12/10 0000 12/09 1600 12/09 0800 Intake Total 629 270 7522 Output Total 900 750 850 Balance -775 50 150 Intake, IV 856 438 9492 Intake, Oral 0 0 Number 0 Bowel Movements Output, 50 150 Gastric Drainage Output, Urine 900 700 700 General: awake, alert, oriented, NAD Eyes: mild epiphoria in left eye, no injection of conjuctiva, no pruritis, no purulence Lungs: CTAB, good air movement bilaterally, no wheeze/rales/rhonchi Heart: S1 S2, RRR, no M, R, G Abdomen: soft, non-distended, absent bowel sounds, tympanic, dressing clean, dry and intact, non-tender, NGT in place with about 25 cc of bilious output, benavidez catheter in place with clear yellow urine in bag Extremities: warm, soft, no erythema, gross motor/sensory function intact, ALPS in place, no calf tenderness bilaterally Assessment/Plan Assessment: This is a 66 y/o female POD #1 exploratory laparotomy and right colectomy for ileocecal mass and bowel obstruction. PMH significant for hypertension. Recovering well post-op, no pain. Plan: Diet: NPO - await return of bowel function Pain: continue current pain management regimen DVT ppx: subq heparin, ALPS Keep benavidez Keep NGT Strict I's and O's IV fluids Consider OOB to chair Await pathology report Will discuss with attending ABBEY CARTER 12/10/16 1033: Resident Review Statement Other Findings: Agree with RONAK student note. Pt denies pain. no flatus, no BM, good uo via benavidez, no OOB, NPO, NGT with minimal output. denies abdominal pain/n/v. Has questions about treatment plan- aware path results not final yet. PLAN: npo, ivf, iv meds ngt: remove or clamping trial? dvt ppx dc benavidez, dtv oob, ambulate. will dw attending
[2016-12-10 12:27] LABS: WHITE BLOOD CELL COUNT 15.1 /CUMM (4.8-10.8)
[2016-12-10 14:09] VITALS: BP 122/70
--- NOTE | 2016-12-10 18:54 | PN- Cardiology ---
Objective Vital Signs and I&Os Vital Signs Date Time Temp Pulse Resp B/P B/P Pulse O2 O2 Flow FiO2 Mean Ox Delivery Rate 12/10 1409 98.2 80 20 122/70 94 12/10 0657 97.5 62 20 130/76 98 Nasal 2.0L Cannula 12/10 0306 97.7 60 20 138/70 98 12/10 0116 97.7 62 20 136/68 97 12/10 0000 95 Nasal 2.0L Cannula 12/09 2302 98.1 78 17 140/70 95 Nasal Cannula 12/09 2117 56 120/70 Intake & Output 12/10 1600 12/10 0800 12/10 0000 12/09 1600 12/09 0812/09 0000 Intake Total 1000 1000 150 275 5991 1000 Output Total 500 575 900 750 850 900 Balance 500 425 -775 50 150 100 Intake, IV 1000 1000 749 970 6575 1000 Intake, Oral 0 0 0 Number 0 0 Bowel Movements Output, 25 50 150 300 Gastric Drainage Output, Urine 500 550 900 700 700 600 Current Medications: Current Medications Sig/Alexis Start time Last Medication Dose Route Stop Time Status Admin Acetaminophen 650 MG Q6PRN PRN 12/06 1944 AC 12/08 PO 0221 Dextrose/Sodium 1,000 ML .Q8H 12/06 1944 AC 12/10 Chloride IV 1036 Heparin Sodium 5,000 UNIT Q8 12/06 2199 AC 12/10 (Porcine) SC 1437 Hydromorphone HCl 2 MG .STK-MED ONE 12/10 1935 DC IM 12/09 1936 Lisinopril 10 MG 2000 12/08 1999 AC 12/08 PO 2013 Morphine Sulfate 1 MG Q3P PRN 12/06 1944 IV Morphine Sulfate 2 MG Q3P PRN 12/06 1944 IV Ondansetron HCl 4 MG .STK-MED ONE 12/09 2114 DC IM 12/10 2115 Ondansetron HCl 4 MG Q8P PRN 12/06 1944 AC 12/09 IV 211 Pantoprazole Sodium 40 MG DAILY 12/09 99 AC 12/10 IV 1036 Phenol 2 SPRAY Q2P PRN 12/08 0945 AC 12/08 EXT 1108 Zolpidem Tartrate 5 MG AT BEDTIME NEED.. 12/06 1944 AC PO Results Last 48 Hrs of Labs/Mics: Laboratory Tests 12/10/16 0710: Anion Gap 9, Estimated GFR > 60, BUN/Creatinine Ratio 8.3, CBC w Diff MAN DIFF ORDERED, RBC 4.41, MCV 64.2 L, MCH 18.9 L, RDW 20.7 H, MPV 8.2, Segmented Neutrophils 84 H, Band Neutrophils 1, Lymphocytes 4 L, Monocytes 11 H, Polychromasia 1+, Poikilocytosis 1+, Anisocytosis 2+, PUBS MCHC 29.5 L 12/09/16 0725: Anion Gap 8, Estimated GFR > 60, BUN/Creatinine Ratio 7.1, PT 11.7, INR 1.12 Assessment/Plan Assessment/Plan Assessment: 1. SBO with abdominal mass 2. HTN 3. Obesity 4. Microcytic anemia Recommendations: -The patient's examination, ECG, and echocardiogram performed today showed no significant abnormalities. Her left ventricular function is normal. There is no significant valvular disease. She does have evidence of moderate pulmonary hypertension which may, conceivably, be a manifestation of underlying sleep apnea syndrome. -From a cardiac perspective, I see no contraindication to today surgery. -Please check an ECG postoperatively and again tomorrow.
[2016-12-10 22:30] VITALS: BP 118/58
[2016-12-11 06:42] VITALS: BP 118/60
--- NOTE | 2016-12-11 08:19 | PN- General Surgery ---
See Addendum Subjective Subjective: POD#2 S/P OPEN RIGHT HEMICOLECTOMY NO MAJOR ISSUES OVERNIGHT DENIES CP, SOB, NO N+V POST NGT REMOVAL Objective Vital Signs and I&Os Vital Signs Date Time Temp Pulse Resp B/P B/P Pulse O2 O2 Flow FiO2 Mean Ox Delivery Rate / 0642 97.4 77 20 118/60 95 Room Air / 2230 98.5 83 20 118/58 92 Room Air 12/10 1941 78 140/64 12/10 1409 98.2 80 20 122/70 94 Intake & Output / 1600 12/11 0800 12/11 0000 / 1600 12/10 0800 12/10 0000 Intake Total 9293 429 8096 1000 125 Output Total 600 800 500 575 900 Balance 550 50 500 425 -775 Intake, IV 2599 758 9649 1000 125 Intake, Oral 150 350 0 Number 0 Bowel Movements Output, 25 Gastric Drainage Output, Urine 600 800 500 550 900 Physical Exam: CV: RRR LUNGS: CLEAR ABD: OBESE, SOFT NO GUARDING TO PALP DRSG DRY EXT: WARM, DISTAL CMS INTACT Assessment/Plan Assessment/Plan SURGICAL STABLE PLAN OOB AMBULATE CONTINUE NPO NURSING TO DRAW AM LABS AWAITING IMPROVED BOWEL FXN Core Measures/Miscellaneous Venous Thromboembolism VTE Risk Factors: Age > 40 VTE Contraindications: No Contraindications VTE Diagnosis: No VTE Type: NONE VTE Confirmed by (Test): NONE Beta Yumiko Is Beta Yumiko a Home Med? No Antibiotics Is Patient on Antibiotics? No
--- NOTE | 2016-12-11 08:55 | PN- Cardiology ---
Objective Vital Signs and I&Os Vital Signs Date Time Temp Pulse Resp B/P B/P Pulse O2 O2 Flow FiO2 Mean Ox Delivery Rate 12/11 0642 97.4 77 20 118/60 95 Room Air 12/10 2230 98.5 83 20 118/58 92 Room Air 12/10 194 78 140/64 12/10 1409 98.2 80 20 122/70 94 Intake & Output 12/11 1600 12/11 0800 12/11 0000 12/10 1600 12/10 0000 Intake Total 5222 396 8129 1000 125 Output Total 600 800 500 575 900 Balance 550 50 500 425 -775 Intake, IV 5244 917 1487 1000 125 Intake, Oral 150 350 0 Number 0 Bowel Movements Output, 25 Gastric Drainage Output, Urine 600 800 500 550 900 Current Medications: Current Medications Sig/Alexis Start time Last Medication Dose Route Stop Time Status Admin Acetaminophen 650 MG Q6PRN PRN 12/06 1944 AC 12/08 PO 0221 Dextrose/Sodium 1,000 ML .Q8H 12/06 1944 AC 12/11 Chloride IV 0341 Heparin Sodium 5,000 UNIT Q8 12/06 2199 AC 12/11 (Porcine) SC 0550 Lisinopril 10 MG 12/07 AC 12/10 PO 194 Morphine Sulfate 1 MG Q3P PRN 12/06 1944 AC IV Morphine Sulfate 2 MG Q3P PRN 12/06 1944 AC IV Ondansetron HCl 4 MG Q8P PRN 12/06 1944 AC 12/09 IV 2118 Pantoprazole Sodium 40 MG DAILY 12/09 0100 AC 12/10 IV 1036 Phenol 2 SPRAY Q2P PRN 12/08 0945 AC 12/08 EXT 1108 Zolpidem Tartrate 5 MG AT BEDTIME NEED.. 12/06 1944 AC PO Results Last 48 Hrs of Labs/Mics: Laboratory Tests 12/10/16 0710: Anion Gap 9, Estimated GFR > 60, BUN/Creatinine Ratio 8.3, CBC w Diff MAN DIFF ORDERED, RBC 4.41, MCV 64.2 L, MCH 18.9 L, RDW 20.7 H, MPV 8.2, Segmented Neutrophils 84 H, Band Neutrophils 1, Lymphocytes 4 L, Monocytes 11 H, Polychromasia 1+, Poikilocytosis 1+, Anisocytosis 2+, PUBS MCHC 29.5 L Assessment/Plan Assessment/Plan Assessment: 1. SBO with abdominal mass 2. HTN 3. Obesity 4. Microcytic anemia Recommendations: -Patient appears stable from a cardiac perspective. -Continue as per the surgical service. -Ambulate as tolerated.
[2016-12-11 10:41] LABS: HEMATOCRIT 25.6 % (37-47); MEAN CORPUSCULAR HGB 18.8 PG (27.0-31.0); MEAN CORPUSCULAR HGB CONC 29.5 G/DL (33.0-37.0); MEAN CORPUSCULAR VOLUME 63.9 FL (81.0-99.0); MEAN PLATELET VOLUME 7.8 FL (7.4-10.4); PLATELET COUNT 268 /CUMM (130-400); RBC DISTRIBUTION WIDTH 21.4 % (11.5-14.5); WHITE BLOOD CELL COUNT 8.1 /CUMM (4.8-10.8)
[2016-12-11 13:57] VITALS: BP 120/67
[2016-12-11 22:29] VITALS: BP 122/54
--- NOTE | 2016-12-12 06:42 | NUR ---
NURSING NOTE: PT IV LEAKING. FAILED ATTEMPT AT NEW IV PLACEMENT. IVF NOT CURRENTLY RUNNING. PA AWARE NO ACCESS AT THIS TIME.
[2016-12-12 06:53] VITALS: BP 132/60
--- NOTE | 2016-12-12 06:59 | PN- General Surgery ---
See Addendum Subjective Subjective: The patient was seen this morning postoperatively day #3. Patient reports passing flatus a few times last night but no bowel movements as of yet. She has no other complaints and denies any nausea. Objective Vital Signs and I&Os Vital Signs Date Time Temp Pulse Resp B/P B/P Pulse O2 O2 Flow FiO2 Mean Ox Delivery Rate 12/12 0653 98.0 78 18 132/60 94 Room Air 12/11 2229 98.4 85 20 122/54 94 Room Air 12/117 70 130/68 12/11 1357 98.2 66 20 120/67 93 Intake & Output 12/12 0800 / 0000 / 1600 12/11 0800 12/11 0000 12/10 1600 Intake Total 854 013 9707 850 1000 Output Total 350 700 550 600 800 500 Balance 50 -500 -550 550 50 500 Intake, IV 595 373 8049 500 1000 Intake, Oral 0 150 350 Output, Urine 350 700 550 600 800 500 Physical Exam: Gen.: Alert and in no obvious distress Skin: Warm and dry Abdomen: Soft, obese, appropriate incisional tenderness, bowel sounds positive. Surgical incision is clean, dry, and intact with clips in place. Extremities: Bilateral lower extremities are warm without calf tenderness or significant edema. Assessment/Plan Assessment/Plan Assessment: 66-year-old female status post right colectomy for abdominal mass postoperative day #3. The patient is progressing as expected, her pain is under adequate control, and her bowel function slowly returning. Plan: Advance to clear liquid diet Follow-up morning laboratory studies Add type and screen Out of bed and ambulate GI and DVT prophylaxis Continue current pain regiment Core Measures/Miscellaneous Venous Thromboembolism VTE Risk Factors: Age > 40 VTE Contraindications: No Contraindications VTE Diagnosis: No VTE Type: NONE VTE Confirmed by (Test): NONE Beta Yumiko Is Beta Yumiko a Home Med? No Antibiotics Is Patient on Antibiotics? No
[2016-12-12 10:58] LABS: MEAN CORPUSCULAR HGB 18.9 PG (27.0-31.0); MEAN PLATELET VOLUME 8.1 FL (7.4-10.4); WHITE BLOOD CELL COUNT 7.9 /CUMM (4.8-10.8)
[2016-12-12 11:50] LABS: HEMATOCRIT 26.9 % (37-47); MEAN CORPUSCULAR HGB CONC 29.7 G/DL (33.0-37.0); MEAN CORPUSCULAR VOLUME 63.7 FL (81.0-99.0); PLATELET COUNT 296 /CUMM (130-400); RBC DISTRIBUTION WIDTH 20.8 % (11.5-14.5); RED BLOOD CELL CT 4.22 /CUMM (4.20-5.40)
[2016-12-12 14:28] VITALS: BP 120/72
[2016-12-12 22:34] VITALS: BP 138/64
[2016-12-13 06:00] VITALS: BP 120/80
--- NOTE | 2016-12-13 07:00 | PN- Student ---
EDNA SHRESTHA 12/13/16 0655: Subjective Subjective: Patient is comfortable this am, reports no pain, nausea, vomiting, chest discomfort, SOB, headaches or dizziness. Large, non-bloody liquid bowel movement around 2am today with no difficulty. Passing flatus. Is OOB and ambulating since yesterday. Hasn't started full liquid diet yet, will start this am. Objective Objective: Vital Signs Result Date Time Pulse Ox 96 12/13 599 B/P 120/80 12/13 599 O2 Delivery Room Air 12/13 599 Temp 98.2 12/13 599 Pulse 73 12/13 599 Resp 20 12/13 599 O2 Flow Rate 2.0L 12/10 0657 Intake & Output 12/13 0000 12/12 1600 12/12 0800 Intake Total 250 500 400 Output Total 150 350 350 Balance 100 150 50 Intake, IV 10 100 400 Intake, Oral 240 400 0 Number 0 Bowel Movements Output, Stool 50 Output, Urine 100 350 350 General: awake, alert, oriented, NAD Lungs: CTAB, no wheeze/rhonchi/rales, good air movement bilaterally Heart: S1 S2, RRR, no MRG Abdomen: soft, non-distended, normoactive bowel sounds, mild champ-incisional ttp , dressing clean, dry and intact Extremities: gross motor/sensory function in tact, no peripheral edema/erythema, no calf tenderness bilaterally Assessment/Plan Assessment: 66 y/o female POD # 4 right colectomy for ileocecal mass and sbo. PMH significant for hypertension. Progressing as expected with no pain, +bm, +flatus , tolerating clears diet. Daily bloodwork shows anemia. Received potassium yesterday for hypokalemia. Plan: Diet: start full liquid diet this am Pain: continue current pain regimen DVT ppx: ALPS, sub q heparin, OOB and ambulate GI ppx Trend H & H with daily labs Check K levels this am with chem panel Consider discharge to home tomorrow Will discuss with attending
--- NOTE | 2016-12-13 07:20 | PN- General Surgery ---
Surgical Brief Attending Note Brief Attending Note: Patient doing well. Ileus/sbo resolved. Tolerating diet. advance to regular. anticipate d/c tomorrow. Patient has arranged her own visiting nursing. Follow up with me 10-14d for staple removal. Dr. Camp to cover tomorrow.
[2016-12-13] MEDS ORDERED: PERCOCET 5-3251 EACH PO (08:32)
--- NOTE | 2016-12-13 08:36 | Patient Discharge Instructions ---
Discharge Instructions General Discharge Information You were seen/treated for: Bowel obstruction You had these procedures: Right colectomy Watch for these problems: Significantly increased pain, vomiting, or temperatures over 101 Increased redness or drainage from around incision No bath, but you may shower: Yes Other wound care: Daily dry dressing care as needed for comfort over incision Diet Recommended Diet: Low Residue Activity Activity Self Limited: Yes Pounds, do NOT lift more than: 10 Other activity limits: Do not drive until off all pain medications and okay with you or surgeon Acute Coronary Syndrome Inclusion Criteria At DC or during hospital stay patient has or had the following: Discharge Core Measures Meds if any: Prescribed or Continued at Discharge Meds if any: NOT Prescribed or Continued at Discharge Congestive Heart Failure Inclusion Criteria At DC or during hospital stay patient has or had the following: Discharge Core Measures Meds if any: Prescribed or Continued at Discharge Meds if any: NOT Prescribed or Continued at Discharge Cerebrovascular accident Inclusion Criteria At DC or during hospital stay patient has or had the following: CVA/TIA Diagnosis No Discharge Core Measures Meds if any: Prescribed or Continued at Discharge Meds if any: NOT Prescribed or Continued at Discharge Venous thromboembolism Discharge Core Measures - Per Current guidelines, there needs to be overlap - treatment for the first 5 days of Warfarin therapy. - If discharged on Warfarin prior to 5 days of - overlap therapy, the patient will need to be - assessed for post discharge needs including - *Post discharge parental anticoagulation - *Warfarin and/or parental anticoagulation education - *Follow up date to check INR post discharge Meds if any: Prescribed or Continued at Discharge Note: Overlap Therapy is Warfarin and Anticoagulant Meds if any: NOT Prescribed or Continued at Discharge
--- NOTE | 2016-12-13 09:10 | Surgical Discharge Summary ---
Visit Information Visit Dates Admission Date: 12/06/16 Discharge Date: 12/14/16 History of Present Illness Chief Complaint: abdominal pain Medical History Blood Transfusion Hx: No Neurological: NONE EENT: NONE Cardiovascular: hypertension Respiratory: NONE Gastrointestinal: NONE Hepatic: NONE Renal: NONE Musculoskeletal: osteoarthritis Psychiatric: anxiety (mild) Endocrine: obesity Blood Disorders: anemia (fe deficiency) Cancer(s): NONE MANAGER QA/Reproductive: NONE History of MRSA: No History of VRE: No History of CDIFF: No Isolation History: Standard Tetanus Vaccine: 12/06/16 Surgical History Pertinent Surgical History: colon resection (right colectomy), N Family History Relations & Conditions If Any: MOTHER, , Age 88; Cause: CVA (cerebral vascular accident). FATHER, , Age 94; Cause: Old age. Psychosocial History Where Do You Live? Home Who Do You Live With? Patient/Self Services at Home: None What is Your Primary Language? Italian ETOH Use: denies use Other Addictive Behavior: Single. Lives alone. Remote 1 pk yr cigarette smoker, D/C age 19. No EtOH. 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 1 son, Kaveh- 41, [employer] (in room during GI consult, as per patient). Uses cane. Review of Systems: not assessed at d/c Hospital Course Course Attending Physician: Teddy Carmichael M.D. Primary Care Physician: ROQUE KNOTT,[facility] Hospital Course: Patient admitted to surgical service for intestinal obstruction. Findings on CT concerning for right colonic neoplasm as the etiology. After failure of medical management of her obstruction, she was taken to the OR for exploratory laparotomy with right hemicolectomy. Her postoperative course was unremarkable. Bowel function returned on POD3 and diet advanced. Allergies: Coded Allergies: No Known Allergies (12/06/16) Significant Procedures: Right Hemicolectomy Disposition Summary Disposition Principal Diagnosis: Intestinal obstruction Additional Diagnosis: Right colon cancer Morbid obesity Discharge Disposition: home health services Discharge Instructions General Discharge Information Code Status: Full Code Patient's Diet: regular low fiber Patient's Activity: no lifting Follow-Up Instructions/Appts: 2 weeks for staple removal Medications at Discharge Discharge Medications: Continue taking these medications: Lisinopril (Lisinopril) 10 MG TABLET 1 Tablet ORAL DAILY Start taking the following new medications: Oxycodone HCl/Acetaminophen (Percocet 5-325 MG Tablet) 5 MG-325 MG TABLET 1-2 Tablet ORAL EVERY 4-6 HOURS as needed for PAIN Qty = 30 No Refills Copies To: ROQUE KNOTT,PRIYA Leon
[2016-12-13 15:29] VITALS: BP 142/66
[2016-12-13 21:54] VITALS: BP 136/68
[2016-12-14 06:00] VITALS: BP 116/68
--- NOTE | 2016-12-14 07:23 | PN- Student ---
EDNA SHRESTHA 12/14/16 0714: Subjective Subjective: Patient seen this am with no complaints at this time. Denies chest pain, n/v, SOB, headaches, dizziness. Pain is well controlled. Tolerating regular diet well. OOB and ambulating frequently throughout the day. +flatus and +bm. Anticipates discharge to home today. Objective Objective: Vital Signs Result Date Time Pulse Ox 95 12/14 599 B/P 116/68 12/14 0600 O2 Delivery Room Air 12/14 06 Temp 98.2 12/14 0600 Pulse 68 12/14 0600 Resp 20 12/14 0600 O2 Flow Rate 2.0L 12/10 0657 Intake & Output 12/14 0000 12/13 1600 12/13 0800 Intake Total 300 800 490 Output Total 200 800 500 Balance 100 0 -10 Intake, IV 10 Intake, Oral 300 800 480 Number 0 Bowel Movements Output, Stool 200 Output, Urine 200 800 300 General: awake, alert, oriented, NAD Lungs: CTAB, no wheeze/rhonchi/rales Heart: S1 S2, RRR, no MRG Abdomen: soft, non-distended, normoactive bowel sounds, non-tender, dressing clean, dry and intact, incision site clean, no erythema/edema Extremities: gross motor/sensory function in tact, no peripheral edema, no calf tenderness bilaterally Assessment/Plan Assessment: This is a 66 y/o female POD # 5 right colectomy for ileocecal mass and sbo. Progressing as expected. Pain is well controlled. Patient ready to be d/c today. Plan: Diet: continue regular Pain: continue current pain regimen DVT and GI ppx OOB and ambulate D/C to home today Follow up with Tomasa next POD # 13 for staple removal Pending pathology report w/d with attending AMANDA LAM MD 12/14/16 0754: Attending MD Review Statement Attending Sign Off Attending Cosign Statement: I have: reviewed [facility] EMR data, agreed w/resident/PA/PIGMENT FURNACE TENDER. I have not: examined this patient. Other Findings: plan discharge today. ABBEY CARTER 12/14/16 0856: Resident Review Statement Other Findings: Agree w above. Pt seen and examined. Dw attending. plan for DC today per Dr. Lam
== END 2016-12-14 12:08 | disposition home health service (06) | DRG 330 ==
LOC: ERH 16:01 → 2NA 19:43 → ERHI 19:43 → ENRESERV 20:04 → ENTRNSPT 20:38 → EDTRNSPTSTS 20:52 → 2NA 20:56 → CMPTRNSPT 21:20 → ENTRNSPT 12-09 20:36 → CMPTRNSPT 12-09 21:04 → ENPENDDIS 12-14 09:04 → 2NA 12-14 12:08
PROVIDERS: Emergency Medicine; Physician Assistant; Physician Assistant Surgical; ADMIT Surgery
PROC: 0DTF0ZZ Resection of Right Large Intestine, Open Approach (ICD-10-PCS; principal; 2016-12-09)
DX: C18.2 Malignant neoplasm of ascending colon (principal); Z68.41 Body mass index [BMI] 40.0-44.9, adult; K56.60 Unspecified intestinal obstruction; I27.2 Other secondary pulmonary hypertension; E66.01 Morbid (severe) obesity due to excess calories; K56.7 Ileus, unspecified; I10 Essential (primary) hypertension; E87.6 Hypokalemia; D50.8 Other iron deficiency anemias; Z87.891 Personal history of nicotine dependence
CPT/HCPCS: 2NAP; 36415; 74020; 74022; 74177; 81001; 82436; 87086; 88309; 90714; 93005; 93010; 93306; 96361; 96374; J0131; J0690; J1100; J1644; J2405; J2765; J7042

== ENCOUNTER → 2016-12-28 | Day surgery (SDC) | payer OTHER, MEDICARE ==
[~2016-12-28] MED LIST: LISINOPRIL10 M1 PO; PERCOCET 5-3251 EACH PO
--- NOTE | 2016-12-28 13:37 | Operative Report ---
Operative/Inv Procedure Report Surgery Date: 12/28/16 Name of Procedure: Left axillary vein Port-A-Cath placement with ultrasound and fluoroscopic guidance Pre-Operative Diagnosis: Colon cancer, stage III Post-Operative Diagnosis: Same Estimated Blood Loss: scant Surgeon/Diver Tender: CAROLE KNOTT,AMANDA Montgomery Anesthesia: local monitored anesthesi Implants: PowerMarcelino, Operative Indication: Patient with newly diagnosed stage III colon cancer in need of chemotherapy. Operative/Procedure Note Note: After consent she is brought to the operative laid supine. Sedation was obtained and her left chest and neck were prepped and draped. The skin overlying the left subclavicular region was anesthetized with local anesthesia. The axillary vein was identified with ultrasound. The vein was accessed percutaneously and a wire placed. Position of the wire in the right atrium was confirmed with fluoroscopic imaging. An incision was made around the wire and a pocket created inferiorly with blunt dissection. The port was placed into the pocket and the catheter measured to 31 cm in length under fluoroscopic guidance. The dilator was placed over the wire under fluoroscopy. The catheter was then placed through the peel-away sheath which was then extracted. Final fluoroscopic images showed the catheter in the SVC/atrial junction. The port was then flushed with concentrated heparin. The port was anchored to the deep subcutaneous tissues tissues with 0 Vicryl suture. The incision was closed with 2 layers of 3-0 and 4-0 Vicryl. Steri-Strips and sterile dressing applied. Sponge and needle counts are correct CC: ROQUE KNOTT,PRIYA Leon
--- NOTE | 2016-12-28 14:33 | RADIOLOGY REPORT ---
EXAMINATION: XR PORTABLE CHEST CLINICAL INFORMATION: Status post port placement. COMPARISON: [facility] chest x-ray 12/08/2016. TECHNIQUE: Portable frontal view of the chest was obtained. FINDINGS: A single lumen implanted catheter is identified on the left side via a subclavian approach with its tip at the SVC right atrial junction. The cardiomediastinal silhouette is otherwise unremarkable. Previously identified enteric tube is been removed. Lung volumes are diminished. The lungs and pleural spaces appear clear without evidence of congestion, consolidation, or significant appearing effusion or atelectasis. There is no evidence of pneumothorax or pulmonary edema. Included osseous structures appear largely unremarkable. IMPRESSION: Postprocedural changes without evidence of complication.
--- NOTE | 2016-12-29 08:09 | RADIOLOGY REPORT ---
EXAMINATION:\H\ \N\XR CHEST FLUOROSCOPY CLINICAL INFORMATION: Port placement. COMPARISON: None TECHNIQUE: Intraoperative fluoroscopic assistance was provided for Port-A-Cath placement. 2 spot fluoroscopic images are submitted. FINDINGS: On both images, surgical instruments are noted projecting over the chest. On the first image, there is a catheter coursing in the expected location of the subclavian vessels extending into the expected location of the superior vena cava. The tip of the catheter is not clearly identified on the spot fluoroscopic image. FLUOROSCOPY TIME: 32.8 seconds IMPRESSION: Fluoroscopic assistance was provided for Port-A-Cath placement.
== END ==
LOC: STS 01:42
DX: C18.2 Malignant neoplasm of ascending colon (principal); I10 Essential (primary) hypertension; E66.9 Obesity, unspecified; Z68.43 Body mass index [BMI] 50.0-59.9, adult
CPT/HCPCS: C1788; J0690; J1644; J2250; J2405; J2765